=== PATIENT | female | born 1970 | race Caucasian/White ===

== ENCOUNTER 2023-05-15 13:51 | Inpatient (IN) ==
[2023-05-15] MEDS ORDERED: SODIUM CHLORIDE 0.9% 1,000 ML IV ONE (14:48)
--- NOTE | 2023-05-15 15:19 | Emergency Department Note ---
Impression & Plan Acute upper gastrointestinal bleeding ED Provider Note HISTORY OF PRESENT ILLNESS: Patient is a 53-year-old female presenting with melena and lightheadedness. Patient was at dialysis today and had her complete session when she had postdialysis laboratory work-up that apparently showed that she was anemic. Patient had been having melanotic stool for the last 2 months. She thought that it was just black from her iron supplementation. She has received multiple blood transfusions, the most recently being a week ago. She denies having an EGD recently, she was told that she has too many chronic medical problems. She states that in the last few days she has been slightly lightheaded with standing up. Denies any chest pain or shortness of breath. She has had distention of her abdomen, and reports that the last time she had a paracentesis was 2 weeks ago. Denies any abdominal pain. Denies any anticoagulation use. ROS: as above PHYSICAL EXAM: Constitutional: Patient appears in no acute distress. HENT: Head: Normocephalic and atraumatic. Eyes: EOMI, PERRL Mouth/Throat: Mucous membranes moist. Neck: Trachea midline. Neck supple. Cardiovascular: RRR, No murmurs, rubs or gallops. Intact distal pulses. Pulmonary/Chest: No respiratory distress. Breath sounds clear and equal bilaterally. No wheezes or rales. Abdominal: Abdomen soft, no tenderness, rebound or guarding. Abdomen is disten ded. Rectal: Chaperoned by nursing staff. No palpable masses or hemorrhoids. Patient has melanotic stool. Hemoccult positive. Musculoskeletal: No edema, tenderness or deformity noted. Skin: Warm and dry. No rash, erythema, pallor or cyanosis Psychiatric: Appropriate mood and affect for situation. Neurological: Alert and keenly responsive. CN II-XII grossly intact, moving all extremities equally and fully. MDM: - Vitals signs showed hypotension. - History obtained via patient. Patient presents with melena and lightheadedness. Patient was noted to be anemic today after her dialysis session and was referred to the emergency department. She last had a transfusion last week. She reports she was slightly lightheaded today. Had her full dialysis session today. States she has been having dark tarry stool for the last 2 months. Had a paracentesis 2 weeks ago. Denies any abdominal pain, fevers, chest pain or shortness of breath. - Chronic conditions affecting care: ESRD; HTN; HLD - Differential diagnoses include, but are not limited to: diverticular bleed; hemorrhoid; bleeding peptic ulcer; esophageal varices bleed - Order placed for continuous cardiac monitoring. At this time, monitor showed rate of 76 bpm with normal sinus rhythm, per my interpretation. - External medical records reviewed. - EKG reviewed by myself showed normal sinus rhythm. Rate 79 bpm. QTc 449. No acute ischemic changes. - Laboratory workup interpreted by myself showed normal WBC; anemia (Hgb 6.1); stable potassium; elevated anion gap (12); ESRD; normal troponin - Discussed case with checker stocker, Dr. Hussein. He reports that he patient is ESRD due to hypertension. She has been on dialysis for the last 2 years. He reports that patient's hemoglobin on Saturday was 6.9 and she was given 2 units of blood. They repeat her hemoglobin was up to 7.3. He reports that she missed 2 dialysis treatments over the last 2 weeks. She had previously been on the kidney transplant list, but she was inactivated a few months ago secondary to poor outpatient compliance. - 40 mg IV protonix ordered. - Patient was consented for blood in the emergency department. 2 units of packed red blood cells were ordered for transfusion. - Discussion was had with protective services social worker about patient's case and need for admission - Hospitalist consulted for admission - [facility] I provided 37 minutes of critical care time to this patient's care outside of billable procedures. ASSESSMENT AND PLAN: Diagnosis: upper GI bleed Plan: admit Past Med/Surg History Medical History (Updated 05/15/23 @ 16:41 by Nany Banerjee PA-C) Asymptomatic proteinuria Benign essential hypertension Chronic anemia Chronic kidney disease, stage V Hyperphosphatemia Hypothyroidism Metabolic acidosis Secondary hyperparathyroidism of renal origin Vitamin D deficiency Surgical History (Updated 05/15/23 @ 16:38 by Nany Banerjee PA-C) A-V fistula Hx of section Family History (Updated 05/15/23 @ 16:39 by Nany Banerjee PA-C) Father Hypertension Mother Dyslipidemia Parkinsonism Grandfather (Maternal) Parkinsonism Social History Smoking Status: Never smoker Preferred Language: Kiswahili Feels Safe at Home: Yes Allergies Allergies Allergy/AdvReac Type Severity Reaction Status Date / Time Penicillins Allergy Unknown Verified 03/12/19 06:15 Home Meds Home Medications Medication Instructions Recorded Confirmed allopurinol 100 mg tablet 100 mg PO DAILY 03/12/19 05/15/23 calcium acetate(phosphat bind) 667 667 mg PO TID #90 caps 03/12/19 05/15/23 mg capsule epoetin cate-epbx 10,000 unit/mL 10,000 units subcut MONTHLY #1 mL 03/12/19 05/15/23 injection solution (Retacrit) ferrous sulfate 325 mg (65 mg 650 mg PO DAILY 03/12/19 05/15/23 iron) tablet levothyroxine 50 mcg tablet 112 mcg PO DAILY 03/12/19 05/15/23 sertraline 100 mg tablet 100 mg PO DAILY 03/12/19 05/15/23 sodium bicarbonate 650 mg tablet 650 mg PO BID #60 tabs 03/12/19 05/15/23 carvedilol 6.25 mg tablet 0 mg PO DAILY 05/15/23 05/15/23 clotrimazole-betamethasone 1 See Rx Instructions .Route .COMPLEX 05/15/23 05/15/23 %-0.05 % topical cream montelukast 10 mg tablet 10 mg PO DAILY 05/15/23 05/15/23 pantoprazole 20 mg tablet,delayed 20 mg PO DAILY 05/15/23 05/15/23 release Results & Data (ED) Vital Signs Vital Signs - 24 hr 05/15/23 14:43 05/15/23 15:00 05/15/23 15:00 Temperature 36.6 C Temperature Source Temporal Artery Scan Pulse Rate 91 H Pulse Rate [Apical] 75 Pulse Rate [Left] Pulse Rhythm [Left] Pulse Strength [Left] Respiratory Rate 21 18 Respiratory Effort / Characteristics Respiratory Depth Respiratory Pattern Blood Pressure 85/47 L Blood Pressure [Right Arm] 89/49 L Blood Pressure Mean 59 Blood Pressure Mean [Right Arm] 62 Blood Pressure Position [Right Arm] Pulse Oximetry 979 H 98 98 Oxygen Delivery Method Room Air Room Air Sepsis Recent Fever Within 48 Hours No Sepsis New/Unexplained Change in Mental Status N/A Sepsis Action Taken by Nursing No Action Required 05/15/23 15:15 05/15/23 15:19 Temperature Temperature Source Pulse Rate 75 Pulse Rate [Apical] Pulse Rate [Left] 75 Pulse Rhythm [Left] Regular Pulse Strength [Left] Normal Respiratory Rate 18 Respiratory Effort / Characteristics Non-Labored Respiratory Depth Normal Respiratory Pattern Regular Blood Pressure Blood Pressure [Right Arm] 89/49 L Blood Pressure Mean Blood Pressure Mean [Right Arm] 62 Blood Pressure Position [Right Arm] Sitting Pulse Oximetry 98 Oxygen Delivery Method Room Air Sepsis Recent Fever Within 48 Hours Sepsis New/Unexplained Change in Mental Status Sepsis Action Taken by Nursing Laboratory Data 05/15/23 15:00 05/15/23 15:00 Lab Results 05/15/23 05/15/23 05/15/23 Range/Units 15:00 15:00 15:00 WBC 4.99 (4.8-10.8) K/ul RBC 2.05 L (4.20-5.40) M/uL Hgb 6.1 L* (12.0-16.0) g/dl Hct 20.5 L* (37.0-47.0) % MCV 100.0 (80.0-100.0) fL MCH 29.8 (25.0-34.0) pg MCHC 29.8 L (32.0-36.0) g/dL RDW Std Deviation 66.6 H (36.4-46.3) fL RDW Coeff of David 18.5 H (11.5-14.5) % Plt Count 213 (130-400) K/uL MPV 11.0 (9.4-12.4) fL Immature Gran % (Auto) 0.2 % Neut % (Auto) 78.6 % Lymph % (Auto) 11.0 % Mccreary % (Auto) 9.4 % Eos % (Auto) 0.0 % Baso % (Auto) 0.8 % Neut # (Auto) 3.92 (1.40-6.50) K/uL Lymph # (Auto) 0.55 L (1.20-3.40) K/uL Mccreary # (Auto) 0.47 (0.11-0.59) K/uL Eos # (Auto) 0.00 (0.00-0.50) K/uL Baso # (Auto) 0.04 (0.00-0.20) K/uL Immature Gran # (Auto) 0.01 (0.01-0.20) K/uL Hypochromasia Present PT 12.7 H (9.0-12.0) Seconds INR 1.2 H (0.9-1.1) APTT 29.9 (21.0-31.0) Seconds PTT Ratio 1.1 Sodium (136-145) mmol/L Potassium (3.5-5.1) mmol/L Chloride (98-107) mmol/L Carbon Dioxide (21-32) mmol/L Anion Gap (3-11) BUN (6-23) mg/dl Creatinine (0.6-1.2) mg/dl Est Cr Clr Drug Dosing ml/min Est GFR ( Amer) ml/min Est GFR (Non-Af Amer) ml/min BUN/Creatinine Ratio (10-20) Glucose (70-99(Fasting)) mg/dl Calcium (8.6-10.3) mg/dl Total Bilirubin (0.2-1.0) mg/dl AST (13-39) U/L ALT (7-52) U/L Alkaline Phosphatase (34-104) U/L Troponin I High Sens (0-14) pg/ml Total Protein (6.0-8.3) gm/dl Albumin (3.4-5.0) gm/dl Globulin (2.5-4.0) gm/dl Albumin/Globulin Ratio (0.9-2) POC Stool Occult Blood (Negative) Blood Type O Positive Blood Type Recheck Antibody Screen NEGATIVE Crossmatch See Detail 05/15/23 05/15/23 05/15/23 Range/Units 15:00 15:12 16:14 WBC (4.8-10.8) K/ul RBC (4.20-5.40) M/uL Hgb (12.0-16.0) g/dl Hct (37.0-47.0) % MCV (80.0-100.0) fL MCH (25.0-34.0) pg MCHC (32.0-36.0) g/dL RDW Std Deviation (36.4-46.3) fL RDW Coeff of David (11.5-14.5) % Plt Count (130-400) K/uL MPV (9.4-12.4) fL Immature Gran % (Auto) % Neut % (Auto) % Lymph % (Auto) % Mccreary % (Auto) % Eos % (Auto) % Baso % (Auto) % Neut # (Auto) (1.40-6.50) K/uL Lymph # (Auto) (1.20-3.40) K/uL Mccreary # (Auto) (0.11-0.59) K/uL Eos # (Auto) (0.00-0.50) K/uL Baso # (Auto) (0.00-0.20) K/uL Immature Gran # (Auto) (0.01-0.20) K/uL Hypochromasia PT (9.0-12.0) Seconds INR (0.9-1.1) APTT (21.0-31.0) Seconds PTT Ratio Sodium 136 (136-145) mmol/L Potassium 3.8 (3.5-5.1) mmol/L Chloride 94 L (98-107) mmol/L Carbon Dioxide 30 (21-32) mmol/L Anion Gap 12 H (3-11) BUN 57 H (6-23) mg/dl Creatinine 3.52 H (0.6-1.2) mg/dl Est Cr Clr Drug Dosing 15.3 ml/min Est GFR ( Amer) 16.2 ml/min Est GFR (Non-Af Amer) 13.9 ml/min BUN/Creatinine Ratio 16.2 (10-20) Glucose 107 H (70-99(Fasting)) mg/dl Calcium 8.6 (8.6-10.3) mg/dl Total Bilirubin 0.9 (0.2-1.0) mg/dl AST 20 (13-39) U/L ALT 6 L (7-52) U/L Alkaline Phosphatase 193 H (34-104) U/L Troponin I High Sens 8.1 (0-14) pg/ml Total Protein 6.2 (6.0-8.3) gm/dl Albumin 3.8 (3.4-5.0) gm/dl Globulin 2.4 L (2.5-4.0) gm/dl Albumin/Globulin Ratio 1.6 (0.9-2) POC Stool Occult Blood Positive A (Negative) Blood Type Blood Type Recheck O Positive Antibody Screen Crossmatch Administered Medications Discontinued Medications Sodium Chloride (Nss) 1,000 mls @ 999 mls/hr IV .[id number] ONE Stop: 05/15/23 15:48 Last Infusion: 05/15/23 16:22 Dose: 0 mls/hr Documented By: Infusion: 05/15/23 15:48 Dose: 999 mls/hr Documented By: Admin: 05/15/23 15:14 Dose: 999 mls/hr Documented By: EARLE Imaging Data Radiologist's Impression: Chest X-Ray 05/15/23 16:19 XR chest 1V portable HISTORY: 53 years-old Female lightheadedness COMPARISON: None TECHNIQUE: AP view of the chest FINDINGS: Cardiac silhouette is enlarged. Mild interstitial coarsening may be chronic. Mild linear bibasilar densities. No pneumothorax, pleural effusion or lobar airspace consolidation. Prominent confluent radiodense foci/calcified structures obscure the bilateral shoulders. IMPRESSION: Cardiomegaly with mild bibasilar atelectasis. ACT 112: Negative or not required by law. The above report was generated using voice recognition software. It may contain grammatical, syntax or spelling errors. Electronically signed by: Golden Mcduffie M.D. 05/15/2023 4:57 PM Discharge Plan Visit Data Chief Complaint: Referred by Doctor Stated Complaint: DOC REF,STOMACH FLUID,STOMACH BLEEDING,BLOOD TRANS ED Provider: Kinsey Ibanez Discharge Problem: Acute upper gastrointestinal bleeding Forms Stand Alone Forms: [facility] [employer] Prescriptions Prescriptions: No Action Retacrit 10,000 unit/mL solution 10,000 units subcut MONTHLY Qty: 1 calcium acetate(phosphat bind) 667 mg capsule 667 mg PO TID Qty: 90 sodium bicarbonate 650 mg tablet 650 mg PO BID Qty: 60 levothyroxine 50 mcg tablet 112 mcg PO DAILY Patient Comments: per pt it's 112 mcg now intead of 50 mcg allopurinol 100 mg tablet 100 mg PO DAILY ferrous sulfate 325 mg (65 mg iron) tablet 650 mg PO DAILY sertraline 100 mg tablet 100 mg PO DAILY carvedilol 6.25 mg tablet 0 mg PO DAILY Patient Comments: Pt isn't real sure of medication but she said she takes one that is 6.25 in the am and 6.25 in the pm, per fill history Coreg 6.25 is the one she's thinking of pantoprazole 20 mg tablet,delayed release (DR/EC) 20 mg PO DAILY clotrimazole-betamethasone 1-0.05 % cream See Rx Instructions .ROUTE .COMPLEX Rx Instructions: as directed montelukast 10 mg tablet 10 mg PO DAILY Referrals Referrals: Hardik Delaney [Primary Care Provider] -
[2023-05-15 15:57] LABS: Albumin Globulin Ratio 1.6 (0.9-2); Albumin Level 3.8 gm/dl (3.4-5.0); BUN Creatinine Ratio 16.2 (10-20); Bilirubin,Total 0.9 mg/dl (0.2-1.0); Calcium 8.6 mg/dl (8.6-10.3); Creatinine Clr Calc Pharmacy 15.3 ml/min; Est GFR (African American) 16.2 ml/min; Est GFR (Non-African American) 13.9 ml/min; Globulin 2.4 gm/dl (2.5-4.0); Potassium 3.8 mmol/L (3.5-5.1); Total Protein 6.2 gm/dl (6.0-8.3)
[2023-05-15] MEDS ORDERED: SODIUM CHLORIDE 0.9% 250 ML IV PRN (15:58)
[2023-05-15 16:02] LABS: Hematocrit (blood only) 20.5 % (37.0-47.0); Hemoglobin 6.1 g/dl (12.0-16.0); Mean Corpuscular Hemoglobin 29.8 pg (25.0-34.0); Mean Corpuscular Hgb Conc 29.8 g/dL (32.0-36.0); Platelet Count 213 K/uL (130-400); RDW Coefficient of Variation 18.5 % (11.5-14.5); RDW Standard Deviation 66.6 fL (36.4-46.3); Red Blood Count 2.05 M/uL (4.20-5.40); White Blood Count 4.99 K/ul (4.8-10.8)
[2023-05-15 16:04] LABS: Troponin I High Sensitivity 8.1 pg/ml (0-14)
[2023-05-15 16:05] LABS: Basophils # (auto) 0.04 K/uL (0.00-0.20); Basophils % (auto) 0.8 %; Hypochromasia Present; Immature Granulocytes # (auto) 0.01 K/uL (0.01-0.20); Immature Granulocytes % (auto) 0.2 %; Lymphocytes # (auto) 0.55 K/uL (1.20-3.40); Monocytes # (auto) 0.47 K/uL (0.11-0.59); Monocytes % (auto) 9.4 %; Neutrophils # (auto) 3.92 K/uL (1.40-6.50); Neutrophils % (auto) 78.6 %
[2023-05-15 16:16] LABS: INR 1.2 (0.9-1.1); Partial Thromboplastin Ratio 1.1; Partial Thromboplastin Time 29.9 Seconds (21.0-31.0); Prothrombin Time 12.7 Seconds (9.0-12.0)
[2023-05-15] MEDS ORDERED: PANTOprazole 40 MG in SYRINGE 0 ML IV ONE (16:22)
--- NOTE | 2023-05-15 16:30 | History & Physical Report ---
Date of Service May 15, 2023 Assessment & Plan (1) GI bleed: (2) Chronic anemia: Plan: This is a 53-year-old female with PMHx of's end-stage renal disease on dialysis x 4 years, (due to solitary kidney, frequent UTIs, pre-eclampsia, gout, HTN and reflux nephropathy), with regular HD schedule MWF with brachiocephalic AVF which required AV fistulogram stent and peripheral angioplasty 04/02/23, severe , severe TR, mild MR, severe pulmonary hypertension, anemia of chronic disease and iron deficiency, requiring multiple transfusions in the past, HTN, ascites (first began in November 2022 requiring paracentesis), secondary hyperparathyroidism, Vit D deficiency, hypothyroidism and depression who presents to the hospital with 1 day of lightheadedness and dizziness. - Admit to tele - BP hypotensive upon arival to ER, 89/49, initially given 250 ml, type and cross completed, blood bank has been called, ordered 2 U for transfusion with hgb of 6.1 - pt outpt BP runs 95/50s per who supports the history - Pt with melanotic stools on and off with diarrhea over the past 2 months, patient has been receiving IV iron with dialysis transfusions (received today) - Suspect that acute dizziness/hypotension is due to GI blood loss with acute hgb drop, She was transfused 2 units last week due to anemia with similar symptoms - GI consulted for possible needs for EGD/colonoscopy: NOTE: this was not completed during hospital stay at [facility] [place] [facility] in April-it appears that she was transfused and trended, questionable circumstances did not allow for procedure to be performed at that time (3) Chronic kidney disease, stage V: Plan: -Nephrology consulted, follows with Dr. Hussein as an outpatient -Normal HD schedule MWF, received 2.5 hours session 05/15/23, normally gets 3 hours, patient unsure of the amount of liters that were taken off today -Creatinine 3.52, BUN 57, potassium 3.8 on admission -Avoid nephrotoxic agents, renally reduce medications (4) Benign essential hypertension: (5) Severe aortic stenosis: (6) Pulmonary hypertension: Plan: -Follows with Dr. Varma with cardiology as outpatient -Recently had multiple medications discontinued or reduced including (DC meds amlodipine, Lasix) -Hold Coreg which is 6.25 mg BID for now with BP -Check 2D echo -Consult cardiology -abdominal US for portal vasculature and dinora for possible paracentesis - day team to schedule tomorrow (7) Hypothyroidism: Plan: - Cont levothyroxine 112 mcg daily (8) Vitamin D deficiency: Plan: - Chronic, stable DVT ppx: teds, scds CODE: FULL Access: 1 PIV, LUE AVF Dispo: From home, likely to remain in hospital x 1-2 days pending scopes/course. Palliative care consultation would be warranted for goal of care if she is not eligible for scopes and would continue to need transfusion therapy. History of Present Illness Chief Complaint: Lightheadedness and dizziness Primary Care Provider: Hardik Delaney This is a 53-year-old female with PMHx of's end-stage renal disease on dialysis x 4 years, (due to solitary kidney, frequent UTIs, pre-eclampsia, gout, HTN and reflux nephropathy), with regular HD schedule MWF with brachiocephalic AVF which required AV fistulogram stent and peripheral angioplasty 04/02/23, severe , severe TR, mild MR, severe pulmonary hypertension, anemia of chronic disease and iron deficiency, requiring multiple transfusions in the past, HTN, ascites (first began in November 2022 requiring paracentesis), secondary hyperparathyroidism, Vit D deficiency, hypothyroidism and depression who presents to the hospital with 1 day of lightheadedness and dizziness. She was recently hospitalized in [facility] in Apr 2023 Pt was at dialysis this morning and was noting symptoms at that time. She admits to having abdominal distension which is present, but she doesn't think this is worse than normal. Her bowels have looked dark, but thought alejandro this was due to her iron tablet. She has had uncontrolled bouts of diarrhea today, it has been intermittent. Pt had paracentesis in October done, which does not show liver morphology, she was attempted to be scheduled by Dr. Hussein for paracentesis on 05/23 at [facility] as per outpatient EPIC chart review. Pt follow with Dr. Varma with [facility] customer operations associate and was noted that BP had been 89/44 at the end of April, and at that time pt coreg was reduced to 6.25 mg BID. She was supposed to have a cardiac right-sided cardiac catheterization to evaluate aortic stenosis and pulmonary hypertension at [facility] but was found to have a hemoglobin of 6.6 at that time. Procedure was aborted and decision was made to admit to medicine and transfuse 1 unit PRBCs. During that hospital stay nephrology and GI were consulted due to GI bleed. At that time she was also complaining of melena x 2 months and thought it was from her iron pills, orthostasis , nausea and diarrhea. This is nearly identical to the symptoms she is complaining of today. Questionable circumstances regarding EGD and colonoscopy during that hospital stay and ultimately were not performed. Allergies Allergy/AdvReac Type Severity Reaction Status Date / Time Penicillins Allergy Unknown Verified 03/12/19 06:15 Home Medications Medication Instructions Recorded Confirmed Type allopurinol 100 mg tablet 100 mg PO DAILY 03/12/19 05/15/23 History calcium acetate(phosphat bind) 667 667 mg PO TID #90 caps 03/12/19 05/15/23 History mg capsule epoetin cate-epbx 10,000 unit/mL 10,000 units subcut MONTHLY #1 mL 03/12/19 05/15/23 History injection solution (Retacrit) levothyroxine 50 mcg tablet 112 mcg PO DAILY 03/12/19 05/15/23 History sertraline 100 mg tablet 100 mg PO DAILY 03/12/19 05/15/23 History sodium bicarbonate 650 mg tablet 650 mg PO BID #60 tabs 03/12/19 05/15/23 History carvedilol 6.25 mg tablet 6.25 mg PO BID 05/15/23 05/15/23 History clotrimazole-betamethasone 1 See Rx Instructions .Route .COMPLEX 05/15/23 05/15/23 History %-0.05 % topical cream montelukast 10 mg tablet 10 mg PO DAILY 05/15/23 05/15/23 History pantoprazole 20 mg tablet,delayed 20 mg PO DAILY 05/15/23 05/15/23 History release Past Med/Surg History Medical History (Updated 05/15/23 @ 17:59 by Nany Banerjee PA-C) Asymptomatic proteinuria Benign essential hypertension Chronic anemia Chronic kidney disease, stage V Hyperphosphatemia Hypothyroidism Metabolic acidosis Secondary hyperparathyroidism of renal origin Vitamin D deficiency Surgical History (Updated 05/15/23 @ 16:38 by Nany Banerjee PA-C) A-V fistula Hx of section Family History (Updated 05/15/23 @ 16:39 by Nany Banerjee PA-C) Father Hypertension Mother Dyslipidemia Parkinsonism Grandfather (Maternal) Parkinsonism Social History Smoking Status: Never smoker Preferred Language: Danish Feels Safe at Home: Yes Review of Systems Review of Systems: Constitutional: No fever, sweats or chills Eyes: No diplopia, no worsening or blurred vision ENT: normal hearing, no trouble swallowing Respiratory: No cough, sputum, dyspnea at rest or on exertion Cardiovascular: No chest pain, tightness or palpitations Abdomen: As per HPI Musculoskeletal: No joint pain, calf pain, swelling Neurologic: + Generalized weakness, no numbness/tingling, or balance problems typically, today with increased dizziness with standing/walking Psychiatric: No anxiety or depression Skin: No rash or itch Physical Exam Physical Exam: General: awake, alert, no apparent distress, + chronic darkening skin changes throughout, dry skin Head: Normocephalic, atraumatic ENT: PERRL, EOMI, no pharyngeal exudate, mucous membranes dry, no carotid bruits Chest: Clear to auscultation, on room air, no adventitious breath sounds Cardiac: Regular rate and rhythm, +loud systolic ejection murmur Grade III/, no JVD, normal peripheral pulses, good capillary refill Abdominal: NABS x 4 quadrants, soft, +distended, + fluid wave, minimally tender to palpation, no rebound or guarding Extremities: LUE AVF with thrill and bruit, Normal inspection, no peripheral edema or erythema, calfs nontender to palpation Psych: Normal mood and affect Neuro: AAO x 3, strength intact bilaterally and rated 5/5, no motor deficits, speech is clear, no peripheral sensory deficits Results & Data Results & Data Vital Signs (Past 12 Hours) Vital Signs Temp Pulse Pulse Pulse Resp BP BP 05/15/23 15:19 75 05/15/23 15:15 75 18 89/49 L 05/15/23 15:00 05/15/23 15:00 75 18 89/49 L 05/15/23 14:43 36.6 C 91 H 21 85/47 L Pulse Ox O2 Del Method 05/15/23 15:19 05/15/23 15:15 98 Room Air 05/15/23 15:00 98 05/15/23 15:00 98 Room Air 05/15/23 14:43 979 H Room Air Laboratory Results 05/15/23 05/15/23 05/15/23 15:12 15:00 15:00 WBC RBC Hgb Hct MCV MCH MCHC RDW Std Deviation RDW Coeff of David Plt Count MPV Immature Gran % (Auto) Neut % (Auto) Lymph % (Auto) [place] % (Auto) Eos % (Auto) Baso % (Auto) Neut # (Auto) Lymph # (Auto) [place] # (Auto) Eos # (Auto) Baso # (Auto) Immature Gran # (Auto) Hypochromasia PT 12.7 H INR 1.2 H APTT 29.9 PTT Ratio 1.1 Sodium 136 Potassium 3.8 Chloride 94 L Carbon Dioxide 30 Anion Gap 12 H BUN 57 H Creatinine 3.52 H Est Cr Clr Drug Dosing 15.3 Est GFR ( Amer) 16.2 Est GFR (Non-Af Amer) 13.9 BUN/Creatinine Ratio 16.2 Glucose 107 H Calcium 8.6 Total Bilirubin 0.9 AST 20 ALT 6 L Alkaline Phosphatase 193 H Troponin I High Sens 8.1 Total Protein 6.2 Albumin 3.8 Globulin 2.4 L Albumin/Globulin Ratio 1.6 POC Stool Occult Blood Positive A Blood Type Antibody Screen Crossmatch 05/15/23 05/15/23 15:00 15:00 WBC 4.99 RBC 2.05 L Hgb 6.1 L* Hct 20.5 L* MCV 100.0 MCH 29.8 MCHC 29.8 L RDW Std Deviation 66.6 H RDW Coeff of David 18.5 H Plt Count 213 MPV 11.0 Immature Gran % (Auto) 0.2 Neut % (Auto) 78.6 Lymph % (Auto) 11.0 Columbia % (Auto) 9.4 Eos % (Auto) 0.0 Baso % (Auto) 0.8 Neut # (Auto) 3.92 Lymph # (Auto) 0.55 L Columbia # (Auto) 0.47 Eos # (Auto) 0.00 Baso # (Auto) 0.04 Immature Gran # (Auto) 0.01 Hypochromasia Present PT INR APTT PTT Ratio Sodium Potassium Chloride Carbon Dioxide Anion Gap BUN Creatinine Est Cr Clr Drug Dosing Est GFR ( Amer) Est GFR (Non-Af Amer) BUN/Creatinine Ratio Glucose Calcium Total Bilirubin AST ALT Alkaline Phosphatase Troponin I High Sens Total Protein Albumin Globulin Albumin/Globulin Ratio POC Stool Occult Blood Blood Type O Positive Antibody Screen NEGATIVE Crossmatch See Detail Diagnostic Findings Chest X-Ray 05/15/23 16:19 XR chest 1V portable HISTORY: 53 years-old Female lightheadedness COMPARISON: None TECHNIQUE: AP view of the chest FINDINGS: Cardiac silhouette is enlarged. Mild interstitial coarsening may be chronic. Mild linear bibasilar densities. No pneumothorax, pleural effusion or lobar airspace consolidation. Prominent confluent radiodense foci/calcified structures obscure the bilateral shoulders. IMPRESSION: Cardiomegaly with mild bibasilar atelectasis. ACT 112: Negative or not required by law. The above report was generated using voice recognition software. It may contain grammatical, syntax or spelling errors. Electronically signed by: Golden Mcduffie M.D. 05/15/2023 4:57 PM ECG Additional Comments: 15-MAY-2023 14:52:59 [facility]-EDSTAT ROUTINE RETRIEVAL Normal sinus rhythm Nonspecific ST and T wave abnormality Abnormal ECG No previous ECGs available Confirmed by Trey Thakkar ([id number]) on 05/15/2023 4:31:47 PM 25mm/s10mm/[id number] 243CID: 24Confirmed By: Trey Olivo. rate 79 BPM AL interval 148 ms QRS duration 84 ms QT/QTc 392/449 ms Code Status & VTE Plan Code Status Full Code - discussed with the patient and her at bedside Supervising Physician Co-Signing Physician Notes I have seen and discussed the case with the collaborating ITALO. I agree with the above H&P. I have reviewed and confirmed the patients medical history, the findings on physical examination, and the patients diagnosis and treatment plan with Chriss PUCKETT and agree with the information documented. In short, Ms Whaley is a 53 year old woman with a complicated past medical history including severe aortic stenosis, recurrent ascites of uncertain etiology undergoing eval, and ESRD who is admitted due to acute on chronic anemia. Patient's anemia undergoing workup at multiple facilities, including recent admission at [facility] requiring transfusions. Unclear circumstances with scopes given medical complexity. Patient does not appear to be aware of tenuous medical status. VS with hypotension, consistent with routine baseline. Labs with anemia to 6.1. PE with notable fluid wave, no peripheral edema, +POLA. Plan: -Acute anemia, c/f UGIB: transfuse > 7.0, trend cbc, 2 Units on standby, monitor volume status given ESRD/severe , NPO, IV PPI BID, GI consult for ?scope -Ascites: Ordered complete duplex abd US to eval vasculature, discuss timing for para once hgb stable -Severe : ECHO ordered, Cards consult for clearance and optimization -ESRD: Nephrology on consult There rest of plan as above.
--- NOTE | 2023-05-15 16:32 | Electrocardiogram Report ---
Test Reason : Blood Pressure : / mmHG Vent. Rate : 079 BPM Atrial Rate : 079 BPM P-R Int : 148 ms QRS Dur : 084 ms QT Int : 392 ms P-R-T Axes : 039 034 188 degrees QTc Int : 449 ms Normal sinus rhythm Nonspecific ST and T wave abnormality Abnormal ECG No previous ECGs available Confirmed by Trey Thakkar ([id number]) on 05/15/2023 4:31:47 PM Referred By: Confirmed By:Trey Thakkar
[2023-05-15] MEDS ORDERED: SODIUM CHLORIDE 0.9% 1,000 ML IV STA (16:38)
--- NOTE | 2023-05-15 16:58 | XRay Report ---
XR chest 1V portable HISTORY: 53 years-old Female lightheadedness COMPARISON: None TECHNIQUE: AP view of the chest FINDINGS: Cardiac silhouette is enlarged. Mild interstitial coarsening may be chronic. Mild linear bibasilar de nsities. No pneumothorax, pleural effusion or lobar airspace consolidation. Prominent confluent radio dense foci/calcified structures obscure the bilateral shoulders. IMPRESSION: Cardiomegaly with mild bibasilar atelectasis. ACT 112: Negative or not required by law. The above report was generated using voice recognition software. It may contain grammatical, syntax o r spelling errors. Electronically signed by: Golden Mcduffie M.D. 05/15/2023 4:57 PM
[2023-05-15] MEDS ORDERED: ONDANSETRON INJ 2 MG/ML 2 ML VIAL IV PRN (19:57)
[2023-05-15] MEDS ORDERED: ACETAMINOPHEN 325 MG TAB PO PRN (19:57)
[2023-05-15] MEDS: SODIUM BICARBONATE 650 MG TAB PO SCH (22:24)
[2023-05-15] MEDS: CALCIUM ACETATE 667 MG CAP/TAB PO SCH (22:25)
[2023-05-16] MEDS: PANTOprazole 40 MG in SYRINGE 0 ML IV SCH ×3 (01:52→21:51)
[2023-05-16 06:43] LABS: Hematocrit (blood only) 26.9 % (37.0-47.0); Hemoglobin 8.8 g/dl (12.0-16.0); Mean Corpuscular Hemoglobin 30.1 pg (25.0-34.0); Mean Corpuscular Hgb Conc 32.7 g/dL (32.0-36.0); Mean Corpuscular Volume 92.1 fL (80.0-100.0); Platelet Count 206 K/uL (130-400); RDW Coefficient of Variation 19.8 % (11.5-14.5); RDW Standard Deviation 64.4 fL (36.4-46.3); Red Blood Count 2.92 M/uL (4.20-5.40); White Blood Count 6.18 K/ul (4.8-10.8)
[2023-05-16 07:03] LABS: Albumin Globulin Ratio 1.6 (0.9-2); Albumin Level 3.5 gm/dl (3.4-5.0); BUN Creatinine Ratio 15.6 (10-20); Bilirubin,Total 1.3 mg/dl (0.2-1.0); Calcium 8.8 mg/dl (8.6-10.3); Creatinine Clr Calc Pharmacy 13.3 ml/min; Est GFR (African American) 13.2 ml/min; Est GFR (Non-African American) 11.4 ml/min; Globulin 2.2 gm/dl (2.5-4.0); Magnesium 2.1 mg/dl (1.7-2.4); Phosphorus 5.2 mg/dl (2.5-4.9); Potassium 4.2 mmol/L (3.5-5.1); Total Protein 5.7 gm/dl (6.0-8.3)
[2023-05-16 07:07] LABS: INR 1.2 (0.9-1.1); Prothrombin Time 13.2 Seconds (9.0-12.0)
--- NOTE | 2023-05-16 08:43 | Gastrointestinal Consultation ---
Date of Consultation May 16, 2023 Assessment & Plan (1) Chronic anemia: (2) Melena: Plan EGD today by Dr. Cordero. Further recommendations to follow EGD. For now, continue PPI drip, NPO. History of Present Illness Reason for Consultation: GI Bleed Requesting Physician: Jennifer Peters Attending Physician: Felix Bright MD History of Present Illness Ms. Anayeli Whaley is a 53 yr old female pt of Dr. Rhett dozier a hx of CKD5 on dialysis, chronic anemia (frequently requiring transfusions), severe , pulm HTN, , hypothyroidism who was sent to the ED when post dialysis labs showed Hb of 6.1 yesterday. When questioned, she reports black BMs saying that over the past few months, she will sometimes pass a formed black BM early in the morning and sometimes pass a loose black BM later in the day. She is on IV, but not po iron. supplements. She has received 2 units of RBCs and Hb is now 8.8. She is on a PPI drip. She is awake, alert, oriented, denies abdominal pain. She hasn't passed a BM since arrival. I reviewed her OP EPIC records. No prior EGD/colonoscopy and no recent abdominal imaging. Allergies Allergy/AdvReac Type Severity Reaction Status Date / Time Penicillins Allergy Unknown Verified 03/12/19 06:15 Home Medications Medication Instructions Recorded Confirmed Type allopurinol 100 mg tablet 100 mg PO DAILY 03/12/19 05/15/23 History calcium acetate(phosphat bind) 667 667 mg PO TID #90 caps 03/12/19 05/15/23 History mg capsule epoetin cate-epbx 10,000 unit/mL 10,000 units subcut MONTHLY #1 mL 03/12/19 05/15/23 History injection solution (Retacrit) levothyroxine 50 mcg tablet 112 mcg PO DAILY 03/12/19 05/15/23 History sertraline 100 mg tablet 100 mg PO DAILY 03/12/19 05/15/23 History sodium bicarbonate 650 mg tablet 650 mg PO BID #60 tabs 03/12/19 05/15/23 History carvedilol 6.25 mg tablet 6.25 mg PO BID 05/15/23 05/15/23 History clotrimazole-betamethasone 1 See Rx Instructions .Route .COMPLEX 05/15/23 05/15/23 History %-0.05 % topical cream montelukast 10 mg tablet 10 mg PO DAILY 05/15/23 05/15/23 History pantoprazole 20 mg tablet,delayed 20 mg PO DAILY 05/15/23 05/15/23 History release Patient History Medical History (Updated 05/16/23 @ 10:11 by HARSHA Cerda) Asymptomatic proteinuria Benign essential hypertension Chronic anemia Chronic kidney disease, stage V Hyperphosphatemia Hypothyroidism Metabolic acidosis Secondary hyperparathyroidism of renal origin Vitamin D deficiency Surgical History (Updated 05/15/23 @ 16:38 by Nany Banerjee PA-C) A-V fistula Hx of section Family History (Updated 05/15/23 @ 16:39 by Nany Banerjee PA-C) Father Hypertension Mother Dyslipidemia Parkinsonism Grandfather (Maternal) Parkinsonism Social History Smoking Status: Never smoker Hx Alcohol Use: No Hx Substance Use: No Preferred Language: Vietnamese Communication Ability: Effective Operations Technician Required: No Beliefs That Will Affect Care: None Current Living Situation: Spouse and Family Other Information That Helps Us Care for You: No Feels Safe at Home: Yes Safety Concerns: Feels Safe At This Time Assistive Devices: None Review of Systems Review of Systems: ROS: Gen: Denies weakness, fevers, weight loss Eyes: No eye redness, or pain, no recent vision changes Resp: No SOB, no cough Cardio: No palpitations/irregular beats, no chest pain GI: As per HPI, otherwise (-) : No urination, no lower abd pain Skin: No jaundice, itching or new rashes Physical Exam Constitutional: Awake, alert, oriented, generally weak (difficulty even rolling over in bed w/o holding on to a rail etc) but has full use of all extremitites. ENMT: external ear and nose normal, oropharynx normal Neck: trachea midline, no thyromegaly Respiratory: normal respiratory effort, lungs clear to auscultation Cardiovascular: 3/6 systolic murmur; regular rate and rhythm Gastrointestinal (Abdomen): mildly distended, soft, non tender, normal BS Skin: darker - azotemic/bronze tone otherwise normal w/o rashes/lesions. Neurologic: PERRL, EOMI, accommodation nl, no face palsy, no dysarthria Psychiatric: A+Ox3, euthymic affect Lymphatic: no cervical or axillary lymphadenopathy Results & Data Vital Signs (Past 12 Hours) Vital Signs Temp Pulse Pulse Resp BP BP Pulse Ox 05/16/23 08:09 36.6 C 81 19 106/68 98 05/16/23 03:56 37.2 C 82 18 97/61 L 97 05/16/23 02:19 36.7 C 78 22 108/66 96 05/16/23 00:58 05/16/23 00:30 81 22 99/61 L 05/16/23 00:15 83 26 H 100/59 L 05/16/23 00:00 83 24 93/60 L 05/15/23 23:45 83 22 110/65 05/15/23 23:30 82 17 106/56 L 05/15/23 23:15 82 20 101/59 L 05/15/23 23:00 82 22 104/59 L 05/15/23 22:45 81 19 101/59 L 05/15/23 22:30 81 16 112/65 05/15/23 22:15 80 20 99/57 L 100 05/15/23 22:00 79 16 99/56 L 100 05/15/23 23:22 82 05/15/23 21:45 82 20 94/59 L 99 05/15/23 21:30 81 20 100/55 L 100 05/15/23 21:15 81 18 102/58 L 99 05/15/23 21:00 81 23 100/57 L 98 05/15/23 20:50 82 23 99/57 L 95 05/15/23 20:45 79 14 94/64 L 96 05/15/23 21:05 36.8 C 80 18 100/57 L 97 05/15/23 20:50 37.0 C 80 18 99/57 L 95 05/15/23 20:50 37.0 C 82 18 99/57 L 96 O2 Del Method 05/16/23 08:09 Room Air 05/16/23 03:56 Room Air 05/16/23 02:19 Room Air 05/16/23 00:58 Room Air 05/16/23 00:30 05/16/23 00:15 05/16/23 00:00 05/15/23 23:45 05/15/23 23:30 05/15/23 23:15 05/15/23 23:00 05/15/23 22:45 05/15/23 22:30 05/15/23 22:15 05/15/23 22:00 05/15/23 23:22 05/15/23 21:45 05/15/23 21:30 05/15/23 21:15 05/15/23 21:00 05/15/23 20:50 05/15/23 20:45 05/15/23 21:05 05/15/23 20:50 05/15/23 20:50 Laboratory Results WBC 6, Hb 8.8, Hct 29, Plts 206, Na 139, K 4.2, Cl 96, CO2 28, BUN 65, Cr 4.5, glucose 82. Diagnostic Findings CXR: cardiomegaly.
[2023-05-16] MEDS ORDERED: PANTOprazole 40 MG TAB PO SCH (09:00)
--- NOTE | 2023-05-16 09:03 | Ultrasound Report ---
US duplex portal hepatic veins HISTORY: 53 years-old Female Eval portal vasculature acute right upper quadrant abdominal pain COMPARISON: None TECHNIQUE: Multiple real-time sonographic images of the hepatic vasculature was obtained assessing gr ayscale appearance, color and spectral flow FINDINGS: Upper abdominal ascites is noted. Patent hepatic and portal veins with hepatopedal flow. Hepatic cinthya ry is patent with peak systolic velocities measuring up to 83.4 cm/s. IMPRESSION: 1. Patent hepatic vasculature. 2. Upper abdominal ascites. ACT 112: Negative or not required by law. The above report was generated using voice recognition software. It may contain grammatical, syntax o r spelling errors. Electronically signed by: Golden Mcduffie M.D. 05/16/2023 9:02 AM
--- NOTE | 2023-05-16 09:05 | Cardiology Consultation ---
Date of Consultation May 16, 2023 Assessment & Plan (1) Profound anemia: (2) ESRD (end stage renal disease): (3) Severe aortic stenosis: (4) Pulmonary hypertension: (5) Ascites: Plan Very complex patient, 53-year-old with end-stage renal disease chronic anemia with recent symptomatic profound anemia on 2 occasions. Is being evaluated for severe to critical aortic stenosis. Other issues include recurrent ascites, pulmonary hypertension. Currently stable from a cardiac standpoint though with marginal reserve. Echocardiogram with severe arctic stenosis and preserved LV systolic function, severe tricuspid insufficiency with evidence of at least moderate pulmonary hype rtension Patient's chronic blood loss issues are being addressed via GI though may ultimately be managed with intermittent transfusions No plans for acute cardiac intervention. Has follow-up appoint with outpatient cardiology on 05/21/2023 We will follow clinical course in hospital Patient elevated risk for any cardiac intervention or procedure History of Present Illness Reason for Consultation: Severe Requesting Physician: Tyler alanisist Attending Physician: Felix Bright MD History of Present Illness Medically complex 53-year-old female who presented to [facility] emergency department after dialysis yesterday with a hemoglobin of 6.1. She received 2 units of PRBCs and placed on a PPI drip. Hemoglobin 8.8 this morning. Patient was significantly hypotensive and was given IV fluids. Carvedilol was held. GI consulted-- plans for EGD. Follows with Dr. Varma in the valve clinic for severe aortic stenosis and was recently seen in April with plans for work-up of diagnostic coronary angiography at [facility]-this has not yet been completed. At time of initial exam this morning. Patient without chest pain or shortness of breath. Was scheduled for endoscopy but notable appointment stopped secondary to emesis. Hemoglobin improved after transfusion. Mild abdominal distention present no chest pain or discomfort Primary outpatient airframe technical officer: Dr. Waller, [facility] Past medical history: Severe aortic stenosis--follows with Dr. Varma, last evaluated 04/15/2023 with plans for coronary angiography and right heart cath in the future Severe TR Mild MR Severe pulmonary hypertension End-stage renal disease on hemodialysis, Saturday--no longer transplant candidate secondary to severe pulmonary hypertension Ascites status post paracentesis Secondary hyperparathyroidism secondary to ESRD, hypercalcemia, vitamin D deficiency Hypertension Depression Hypothyroidism Chronic anemia, requiring multiple transfusions Allergies Allergy/AdvReac Type Severity Reaction Status Date / Time Penicillins Allergy Unknown Verified 03/12/19 06:15 Home Medications Medication Instructions Recorded Confirmed Type allopurinol 100 mg tablet 100 mg PO DAILY 03/12/19 05/15/23 History calcium acetate(phosphat bind) 667 667 mg PO TID #90 caps 03/12/19 05/15/23 History mg capsule epoetin cate-epbx 10,000 unit/mL 10,000 units subcut MONTHLY #1 mL 03/12/19 05/15/23 History injection solution (Retacrit) levothyroxine 50 mcg tablet 112 mcg PO DAILY 03/12/19 05/15/23 History sertraline 100 mg tablet 100 mg PO DAILY 03/12/19 05/15/23 History sodium bicarbonate 650 mg tablet 650 mg PO BID #60 tabs 03/12/19 05/15/23 History carvedilol 6.25 mg tablet 6.25 mg PO BID 05/15/23 05/15/23 History clotrimazole-betamethasone 1 See Rx Instructions .Route .COMPLEX 05/15/2305/05 History %-0.05 % topical cream montelukast 10 mg tablet 10 mg PO DAILY 05/15/23 05/15/23 History pantoprazole 20 mg tablet,delayed 20 mg PO DAILY 05/15/23 05/15/23 History release Patient History Medical History Asymptomatic proteinuria Benign essential hypertension Chronic anemia Chronic kidney disease, stage V Encounter for pre-operative examination Hyperphosphatemia Hypothyroidism Metabolic acidosis Secondary hyperparathyroidism of renal origin Vitamin D deficiency Surgical History A-V fistula Hx of section Family History Father Hypertension Mother Dyslipidemia Parkinsonism Grandfather (Maternal) Parkinsonism Social History Smoking Status: Never smoker Hx Alcohol Use: No Hx Substance Use: No Preferred Language: Malay Communication Ability: Effective Scout Required: No Beliefs That Will Affect Care: None Current Living Situation: Spouse and Family Other Information That Helps Us Care for You: No Feels Safe at Home: Yes Safety Concerns: Feels Safe At This Time Assistive Devices: None Review of Systems Review of Systems: All systems reviewed & are unremarkable except as noted in HPI & below Physical Exam Constitutional: + ill appearing; no acute distress Neck: trachea midline, no thyromegaly Respiratory: Auscultation: + diminished lung sounds Cardiovascular: Rate/Rhythm: regular rate Heart Sounds: + murmur (Grade 3/6 systolic murmur) Vessels: no JVD Extremities: no edema Gastrointestinal (Abdomen): Percussion/Palpation: abdomen soft Results & Data Vital Signs (Past 12 Hours) Vital Signs Temp Pulse Pulse Resp BP BP Pulse Ox 05/16/23 08:09 36.6 C 81 19 106/68 98 05/16/23 03:56 37.2 C 82 18 97/61 L 97 05/16/23 02:19 36.7 C 78 22 108/66 96 05/16/23 00:58 05/16/23 00:30 81 22 99/61 L 05/16/23 00:15 83 26 H 100/59 L 05/16/23 00:00 83 24 93/60 L 05/15/23 23:45 83 22 110/65 05/15/23 23:30 82 17 106/56 L 05/15/23 23:15 82 20 101/59 L 05/15/23 23:00 82 22 104/59 L 05/15/23 22:45 81 19 101/59 L 05/15/23 22:30 81 16 112/65 05/15/23 22:15 80 20 99/57 L 100 05/15/23 22:00 79 16 99/56 L 100 05/15/23 23:22 82 05/15/23 21:45 82 20 94/59 L 99 05/15/23 21:30 81 20 100/55 L 100 05/15/23 21:15 81 18 102/58 L 99 05/15/23 21:00 81 23 100/57 L 98 05/15/23 21:05 36.8 C 80 18 100/57 L 97 O2 Del Method 05/16/23 08:09 Room Air 05/16/23 03:56 Room Air 05/16/23 02:19 Room Air 05/16/23 00:58 Room Air 05/16/23 00:30 05/16/23 00:15 05/16/23 00:00 05/15/23 23:45 05/15/23 23:30 05/15/23 23:15 05/15/23 23:00 05/15/23 22:45 05/15/23 22:30 05/15/23 22:15 05/15/23 22:00 05/15/23 23:22 05/15/23 21:45 05/15/23 21:30 05/15/23 21:15 05/15/23 21:00 05/15/23 21:05 Laboratory Results Laboratory Results - last 24 hr 05/15/23 05/15/23 05/15/23 15:00 15:00 15:00 WBC 4.99 RBC 2.05 L Hgb 6.1 L* Hct 20.5 L* MCV 100.0 MCH 29.8 MCHC 29.8 L RDW Std Deviation 66.6 H RDW Coeff of David 18.5 H Plt Count 213 MPV 11.0 Immature Gran % (Auto) 0.2 Neut % (Auto) 78.6 Lymph % (Auto) 11.0 [place] % (Auto) 9.4 Eos % (Auto) 0.0 Baso % (Auto) 0.8 Neut # (Auto) 3.92 Lymph # (Auto) 0.55 L [place] # (Auto) 0.47 Eos # (Auto) 0.00 Baso # (Auto) 0.04 Immature Gran # (Auto) 0.01 Hypochromasia Present PT 12.7 H INR 1.2 H APTT 29.9 PTT Ratio 1.1 Sodium Potassium Chloride Carbon Dioxide Anion Gap BUN Creatinine Est Cr Clr Drug Dosing Est GFR ( Amer) Est GFR (Non-Af Amer) BUN/Creatinine Ratio Glucose Calcium Phosphorus Magnesium Total Bilirubin AST ALT Alkaline Phosphatase Troponin I High Sens Total Protein Albumin Globulin Albumin/Globulin Ratio POC Stool Occult Blood SARS-CoV-2 (PCR) Influenza Type A (PCR) Influenza Type B (PCR) RSV (RT-PCR) Blood Type O Positive Blood Type Recheck Antibody Screen NEGATIVE Crossmatch See Detail 05/15/23 05/15/23 05/15/23 15:00 15:12 16:14 WBC RBC Hgb Hct MCV MCH MCHC RDW Std Deviation RDW Coeff of David Plt Count MPV Immature Gran % (Auto) Neut % (Auto) Lymph % (Auto) [place] % (Auto) Eos % (Auto) Baso % (Auto) Neut # (Auto) Lymph # (Auto) [place] # (Auto) Eos # (Auto) Baso # (Auto) Immature Gran # (Auto) Hypochromasia PT INR APTT PTT Ratio Sodium 136 Potassium 3.8 Chloride 94 L Carbon Dioxide 30 Anion Gap 12 H BUN 57 H Creatinine 3.52 H Est Cr Clr Drug Dosing 15.3 Est GFR ( Amer) 16.2 Est GFR (Non-Af Amer) 13.9 BUN/Creatinine Ratio 16.2 Glucose 107 H Calcium 8.6 Phosphorus Magnesium Total Bilirubin 0.9 AST 20 ALT 6 L Alkaline Phosphatase 193 H Troponin I High Sens 8.1 Total Protein 6.2 Albumin 3.8 Globulin 2.4 L Albumin/Globulin Ratio 1.6 POC Stool Occult Blood Positive A SARS-CoV-2 (PCR) Influenza Type A (PCR) Influenza Type B (PCR) RSV (RT-PCR) Blood Type Blood Type Recheck O Positive Antibody Screen Crossmatch 05/16/23 05/16/23 05/16/23 06:11 06:11 06:11 WBC 6.18 RBC 2.92 L Hgb 8.8 L Hct 26.9 L MCV 92.1 D MCH 30.1 MCHC 32.7 RDW Std Deviation 64.4 H RDW Coeff of David 19.8 H Plt Count 206 MPV 11.0 Immature Gran % (Auto) Neut % (Auto) Lymph % (Auto) [place] % (Auto) Eos % (Auto) Baso % (Auto) Neut # (Auto) Lymph # (Auto) [place] # (Auto) Eos # (Auto) Baso # (Auto) Immature Gran # (Auto) Hypochromasia PT 13.2 H INR 1.2 H APTT PTT Ratio Sodium 139 Potassium 4.2 Chloride 96 L Carbon Dioxide 28 Anion Gap 15 H BUN 65 H Creatinine 4.16 H D Est Cr Clr Drug Dosing 13.3 Est GFR ( Amer) 13.2 Est GFR (Non-Af Amer) 11.4 BUN/Creatinine Ratio 15.6 Glucose 82 Calcium 8.8 Phosphorus 5.2 H Magnesium 2.1 Total Bilirubin 1.3 H AST 16 ALT 5 L Alkaline Phosphatase 178 H Troponin I High Sens Total Protein 5.7 L Albumin 3.5 Globulin 2.2 L Albumin/Globulin Ratio 1.6 POC Stool Occult Blood SARS-CoV-2 (PCR) Influenza Type A (PCR) Influenza Type B (PCR) RSV (RT-PCR) Blood Type Blood Type Recheck Antibody Screen Crossmatch 05/16/23 Unknown WBC RBC Hgb Hct MCV MCH MCHC RDW Std Deviation RDW Coeff of David Plt Count MPV Immature Gran % (Auto) Neut % (Auto) Lymph % (Auto) [place] % (Auto) Eos % (Auto) Baso % (Auto) Neut # (Auto) Lymph # (Auto) [place] # (Auto) Eos # (Auto) Baso # (Auto) Immature Gran # (Auto) Hypochromasia PT INR APTT PTT Ratio Sodium Potassium Chloride Carbon Dioxide Anion Gap BUN Creatinine Est Cr Clr Drug Dosing Est GFR ( Amer) Est GFR (Non-Af Amer) BUN/Creatinine Ratio Glucose Calcium Phosphorus Magnesium Total Bilirubin AST ALT Alkaline Phosphatase Troponin I High Sens Total Protein Albumin Globulin Albumin/Globulin Ratio POC Stool Occult Blood SARS-CoV-2 (PCR) NEGATIVE Influenza Type A (PCR) Negative Influenza Type B (PCR) Negative RSV (RT-PCR) Negative Blood Type Blood Type Recheck Antibody Screen Crossmatch
[2023-05-16] MEDS: CALCIUM ACETATE 667 MG CAP/TAB PO SCH ×4 (09:12→17:44)
[2023-05-16] MEDS: SERTRALINE HCL 100 MG TABLET PO SCH (09:13)
[2023-05-16] MEDS: SODIUM BICARBONATE 650 MG TAB PO SCH ×2 (09:13→21:51)
[2023-05-16] MEDS: allopurinoL 100 MG TAB PO SCH (09:13)
[2023-05-16] MEDS: MONTELUKAST SODIUM 10 MG TABLET PO SCH (09:13)
[2023-05-16] MEDS: LEVOTHYROXINE SODIUM 112 MCG TABLET PO SCH (09:13)
--- NOTE | 2023-05-16 10:25 | Anesthesiology Consultation ---
Date of Service May 16, 2023 Assessment & Plan (1) Encounter for pre-operative examination: Chart Review Chart Review: Acceptable Risk for Surgery, Patient NOT seen in Pre Admission Testing and piping blocker initiated Consults Requested none Proposed Anesthesia Anesthesia Type: MAC History Surgery Operation Date: 05/16/23 18:00 Proposed Procedures p Esophagogastroduodenoscopy Dr Fletcher - Tirso Cordero MD Height/Weight Height: 5 ft Weight: 68 kg Allergies Allergy/AdvReac Type Severity Reaction Status Date / Time Penicillins Allergy Unknown Verified 03/12/19 06:15 Medications Home Medications Medication Instructions Recorded Confirmed Last Taken allopurinol 100 mg tablet 100 mg PO DAILY 03/12/19 05/15/23 05/15/23 calcium acetate(phosphat bind) 667 667 mg PO TID #90 caps 03/12/19 05/15/23 Unknown mg capsule epoetin cate-epbx 10,000 unit/mL 10,000 units subcut MONTHLY #1 mL 03/12/19 05/15/23 Unknown injection solution (Retacrit) levothyroxine 50 mcg tablet 112 mcg PO DAILY 03/12/19 05/15/23 Unknown sertraline 100 mg tablet 100 mg PO DAILY 03/12/19 05/15/23 Unknown sodium bicarbonate 650 mg tablet 650 mg PO BID #60 tabs 03/12/19 05/15/23 Unk nown carvedilol 6.25 mg tablet 6.25 mg PO BID 05/15/23 05/15/23 05/15/23 clotrimazole-betamethasone 1 See Rx Instructions .Route .COMPLEX 05/15/23 05/15/23 Unknown %-0.05 % topical cream montelukast 10 mg tablet 10 mg PO DAILY 05/15/23 05/15/23 Unknown pantoprazole 20 mg tablet,delayed 20 mg PO DAILY 05/15/23 05/15/23 Unknown release Active Medications Generic Name Dose Route Start Last Admin Trade Name Freq PRN Reason Stop Dose Admin Allopurinol 100 mg 05/16/23 09:00 05/16/23 09:13 Allopurinol 100 Mg Tab PO 06/15/23 08:59 100 mg DAILY GONZALO Administration Calcium Acetate 667 mg 05/15/23 21:00 05/16/23 09:12 Calcium Acetate 667 Mg Cap/Tab PO 06/14/23 20:59 667 mg TIDM GONZALO Administration Pantoprazole Sodium 40 mg/ 10 mls @ 5 mls/min 05/15/23 21:00 05/16/23 09:12 Syringe IV 06/14/23 20:59 5 mls/min BID GONZALO Administration Levothyroxine Sodium 112 mcg 05/16/23 09:00 05/16/23 09:13 Levothyroxine Sodium 112 Mcg Tablet PO 06/15/23 08:59 112 mcg DAILY GONZALO Administration Montelukast Sodium 10 mg 05/16/23 09:00 05/16/23 09:13 Montelukast Sodium 10 Mg Tablet PO 06/15/23 08:59 10 mg DAILY GONZALO Administration Ondansetron HCl 4 mg 05/15/23 19:57 05/16/23 09:22 Ondansetron Inj 2 Mg/Ml 2 Ml Vial IV 06/14/23 19:56 4 mg Q4H PRN Administration Nausea And Vomiting Pantoprazole Sodium 40 mg 05/16/23 09:00 05/16/23 09:13 Pantoprazole 40 Mg Tab PO 06/15/23 08:59 40 mg DAILY GONZALO Administration Sertraline HCl 100 mg 05/16/23 09:00 05/16/23 09:13 Sertraline Hcl 100 Mg Tablet PO 06/15/23 08:59 100 mg DAILY GONZALO Administration Sodium Bicarbonate 650 mg 05/15/23 21:00 05/16/23 09:13 Sodium Bicarbonate 650 Mg Tab PO 06/14/23 20:59 650 mg BID GONZALO Administration Past Medical History Medical History (Updated 05/16/23 @ 10:26 by Rk Levine MD) Asymptomatic proteinuria Benign essential hypertension Chronic anemia Chronic kidney disease, stage V Encounter for pre-operative examination Hyperphosphatemia Hypothyroidism Metabolic acidosis Secondary hyperparathyroidism of renal origin Vitamin D deficiency Past Family History Family History Father Hypertension Mother Dyslipidemia Parkinsonism Grandfather (Maternal) Parkinsonism Past Surgical History Surgical History A-V fistula Hx of section Social History Smoking Status: Never smoker Hx Alcohol Use: No Hx Substance Use: No Physical Exam Vital Signs Last Vital Signs Temp 36.6 C 05/16/23 08:09 Pulse 81 05/16/23 08:09 Resp 19 05/16/23 08:09 BP 106/68 05/16/23 08:09 Pulse Ox 98 05/16/23 08:09 O2 Del Method Room Air 05/16/23 08:09 Testing Laboratory Results 05/16/23 06:11 05/16/23 06:11 PT 13.2 Seconds (9.0-12.0) H 05/16/23 06:11 INR 1.2 (0.9-1.1) H 05/16/23 06:11 APTT 29.9 Seconds (21.0-31.0) 05/15/23 15:00 Blood Type O Positive 05/15/23 15:00 Antibody Screen NEGATIVE 05/15/23 15:00 Electrocardiogram Date: 05/15/23 Test Reason : Blood Pressure : / mmHG Vent. Rate : 079 BPM Atrial Rate : 079 BPM P-R Int : 148 ms QRS Dur : 084 ms QT Int : 392 ms P-R-T Axes : 039 034 188 degrees QTc Int : 449 ms Normal sinus rhythm Nonspecific ST and T wave abnormality Abnormal ECG No previous ECGs available Confirmed by Trey Thakkar ([id number]) on 05/15/2023 4:31:47 PM Chest X-Ray Date: 05/15/23 XR chest 1V portable HISTORY: 53 years-old Female lightheadedness COMPARISON: None TECHNIQUE: AP view of the chest FINDINGS: Cardiac silhouette is enlarged. Mild interstitial coarsening may be chronic. Mild linear bibasilar densities. No pneumothorax, pleural effusion or lobar airspace consolidation. Prominent confluent radiodense foci/calcified structures obscure the bilateral shoulders. IMPRESSION: Cardiomegaly with mild bibasilar atelectasis.
--- NOTE | 2023-05-16 11:19 | History & Physical Report ---
Date of Service May 16, 2023 Assessment & Plan Admission and Anticipated Discharge Date Admission Date: May 15, 2023 History of Present Illness Primary Care Provider: Hardik Delaney Anemia, dark stool Cv: RRR Resp: CTA Abd: soft A/p: EGD Allergies Allergy/AdvReac Type Severity Reaction Status Date / Time Penicillins Allergy Unknown Verified 03/12/19 06:15 Home Medications Medication Instructions Recorded Confirmed Type allopurinol 100 mg tablet 100 mg PO DAILY 03/12/19 05/15/23 History calcium acetate(phosphat bind) 667 667 mg PO TID #90 caps 03/12/19 05/15/23 History mg capsule epoetin cate-epbx 10,000 unit/mL 10,000 units subcut MONTHLY #1 mL 03/12/19 05/15/23 History injection solution (Retacrit) levothyroxine 50 mcg tablet 112 mcg PO DAILY 03/12/19 05/15/23 History sertraline 100 mg tablet 100 mg PO DAILY 03/12/19 05/15/23 History sodium bicarbonate 650 mg tablet 650 mg PO BID #60 tabs 03/12/19 05/15/23 History carvedilol 6.25 mg tablet 6.25 mg PO BID 05/15/23 05/15/23 History clotrimazole-betamethasone 1 See Rx Instructions .Route .COMPLEX 05/15/23 05/15/23 History %-0.05 % topical cream montelukast 10 mg tablet 10 mg PO DAILY 05/15/23 05/15/23 History pantoprazole 20 mg tablet,delayed 20 mg PO DAILY 05/15/23 05/15/23 History release Past Med/Surg History Medical History (Updated 05/16/23 @ 10:26 by Rk Levine MD) Asymptomatic proteinuria Benign essential hypertension Chronic anemia Chronic kidney disease, stage V Encounter for pre-operative examination Hyperphosphatemia Hypothyroidism Metabolic acidosis Secondary hyperparathyroidism of renal origin Vitamin D deficiency Surgical History A-V fistula Hx of section Family History Father Hypertension Mother Dyslipidemia Parkinsonism Grandfather (Maternal) Parkinsonism Social History Smoking Status: Never smoker Hx Alcohol Use: No Hx Substance Use: No Preferred Language: Belarusian Communication Ability: Effective Layout Man Required: No Beliefs That Will Affect Care: None Current Living Situation: Spouse and Family Other Information That Helps Us Care for You: No Feels Safe at Home: Yes Safety Concerns: Feels Safe At This Time Assistive Devices: None Results & Data Results & Data Vital Signs (Past 12 Hours) Vital Signs Temp Pulse Pulse Resp BP BP Pulse Ox 05/16/23 08:09 36.6 C 81 19 106/68 98 05/16/23 03:56 37.2 C 82 18 97/61 L 97 05/16/23 02:19 36.7 C 78 22 108/66 96 05/16/23 00:58 05/16/23 00:30 81 22 99/61 L 05/16/23 00:15 83 26 H 100/59 L 05/16/23 00:00 83 24 93/60 L 05/15/23 23:45 83 22 110/65 05/15/23 23:30 82 17 106/56 L 05/15/23 23:22 82 O2 Del Method 05/16/23 08:09 Room Air 05/16/23 03:56 Room Air 05/16/23 02:19 Room Air 05/16/23 00:58 Room Air 05/16/23 00:30 05/16/23 00:15 05/16/23 00:00 05/15/23 23:45 05/15/23 23:30 05/15/23 23:22 Code Status & VTE Plan VTE Prophylaxis Plan VTE Prophylaxis will be ordered: Yes
[2023-05-16] MEDS ORDERED: PROPOFOL IV EMULSION 10 MG/ML 20 ML VIAL IV ONE ×2 (11:23→13:17)
[2023-05-16] MEDS ORDERED: LIDOCAINE 2% 2 ML VIAL/AMP(20MG/ML) INFIL ONE ×2 (11:23→13:17)
--- NOTE | 2023-05-16 11:29 | Hospitalist Progress Note ---
Date of Service May 16, 2023 Assessment & Plan (1) GI bleed: (2) Chronic anemia: Plan: This is a 53-year-old female with PMHx of's end-stage renal disease on dialysis x 4 years, (due to solitary kidney, frequent UTIs, pre-eclampsia, gout, HTN and reflux nephropathy), with regular HD schedule MWF with brachiocephalic AVF which required AV fistulogram stent and peripheral angioplasty 04/02/23, severe , severe TR, mild MR, severe pulmonary hypertension, anemia of chronic disease and iron deficiency, requiring multiple transfusions in the past, HTN, ascites (first began in November 2022 requiring paracentesis), secondary hyperparathyroidism, Vit D deficiency, hypothyroidism and depression who presents to the hospital with 1 day of lightheadedness and dizziness. History of hospitalization in [facility] in middle of April for right heart cath. She was found to have anemia and was transfused. Endoscopy was not performed as patient's hemoglobin remained stable. She was discharged on Protonix 20 mg once a day - BP hypotensive upon arival to ER, 89/49, initially given 250 ml, type and cross completed, -Hemoglobin found to be 6.1 on admission; transfused 2 units of blood. Repeat hemoglobin of 8.8 today. - Pt with melanotic stools on and off with diarrhea over the past 2 months, patient has been receiving IV iron with dialysis transfusions -Continue on Protonix twice daily -GI consulted; plan for possible endoscopy today. (3) ESRD (end stage renal disease): Plan: -Nephrology consulted, follows with Dr. Hussein as an outpatient -Normal HD schedule MWF, received 2.5 hours session 05/15/23, -Avoid nephrotoxic agents, renally reduce medications (4) Benign essential hypertension: (5) Severe aortic stenosis: (6) Pulmonary hypertension: Plan: -Follows with Dr. Varma with cardiology as outpatient -Recently had multiple medications discontinued or reduced including (DC meds amlodipine, Lasix) -Hold Coreg which is 6.25 mg BID for now with BP Cardiology consulted. Echocardiogram pending. (7) Hypothyroidism: Plan: - Cont levothyroxine 112 mcg daily (8) Vitamin D deficiency: Plan: - Chronic, stable DVT ppx: teds, scds CODE: FULL Access: 1 PIV, LUE AVF Dispo: PT OT ordered Time spent evaluating patient, direct bedside care, chart review, placing orders, interpretation of diagnostic studies, discussion with consultants, patient, and family members, as well as other required patient management activities is 60 minutes Please note the above document was generated using voice recognition software. It may contain grammatical, syntax or spelling errors. Any formal questions or concerns about the content, text or information contained within the body of this dictation should be directly addressed to the provider for clarification Admission and Anticipated Discharge Date Admission Date: May 15, 2023 Subjective Patient seen and examined at bedside. She is sitting on a chair at the side of the bed; not in distress. She reports that she is feeling better since admission/transfusion. No longer feeling dizzy Review of Systems Review of Systems: All systems reviewed & are unremarkable except as noted in Subjective Physical Exam Physical Exam: General: awake, alert, no apparent distress, comfortable. Head: Normocephalic, atraumatic ENT: PERRL, EOMI, no pharyngeal exudate, mucous membranes dry, no carotid bruits Chest: Clear to auscultation, on room air, no adventitious breath sounds Cardiac: Regular rate and rhythm, +loud systolic ejection murmur Grade III/, no JVD, normal peripheral pulses, good capillary refill Abdominal: NABS x 4 quadrants, soft, +distended, + fluid wave, minimally tender to palpation, no rebound or guarding Extremities: LUE AVF with thrill and bruit, Normal inspection, no peripheral edema or erythema, calfs nontender to palpation Psych: Normal mood and affect Neuro: AAO x 3, strength intact bilaterally and rated 5/5, no motor deficits, speech is clear, no peripheral sensory deficits Results & Data Results & Data Vital Signs (Past 12 Hours) Vital Signs Temp Pulse Pulse Resp BP BP Pulse Ox 05/16/23 06:00 81 05/16/23 08:09 36.6 C 81 19 106/68 98 05/16/23 03:56 37.2 C 82 18 97/61 L 97 05/16/23 02:19 36.7 C 78 22 108/66 96 05/16/23 00:58 05/16/23 00:30 81 22 99/61 L 05/16/23 00:15 83 26 H 100/59 L 05/16/23 00:00 83 24 93/60 L 05/15/23 23:45 83 22 110/65 05/15/23 23:30 82 17 106/56 L 05/15/23 23:22 82 O2 Del Method 05/16/23 06:00 05/16/23 08:09 Room Air 05/16/23 03:56 Room Air 05/16/23 02:19 Room Air 05/16/23 00:58 Room Air 05/16/23 00:30 05/16/23 00:15 05/16/23 00:00 05/15/23 23:45 05/15/23 23:30 05/15/23 23:22 Laboratory Results Laboratory Results WBC 6.18 K/ul (4.8-10.8) 05/16/23 06:11 RBC 2.92 M/uL (4.20-5.40) L 05/16/23 06:11 Hgb 8.8 g/dl (12.0-16.0) L 05/16/23 06:11 Hct 26.9 % (37.0-47.0) L 05/16/23 06:11 MCV 92.1 fL (80.0-100.0) D 05/16/23 06:11 MCH 30.1 pg (25.0-34.0) 05/16/23 06:11 MCHC 32.7 g/dL (32.0-36.0) 05/16/23 06:11 RDW Std Deviation 64.4 fL (36.4-46.3) H 05/16/23 06:11 RDW Coeff of David 19.8 % (11.5-14.5) H 05/16/23 06:11 Plt Count 206 K/uL (130-400) 05/16/23 06:11 MPV 11.0 fL (9.4-12.4) 05/16/23 06:11 Immature Gran % (Auto) 0.2 % 05/15/23 15:00 Neut % (Auto) 78.6 % 05/15/23 15:00 Lymph % (Auto) 11.0 % 05/15/23 15:00 [place] % (Auto) 9.4 % 05/15/23 15:00 Eos % (Auto) 0.0 % 05/15/23 15:00 Baso % (Auto) 0.8 % 05/15/23 15:00 Neut # (Auto) 3.92 K/uL (1.40-6.50) 05/15/23 15:00 Lymph # (Auto) 0.55 K/uL (1.20-3.40) L 05/15/23 15:00 [place] # (Auto) 0.47 K/uL (0.11-0.59) 05/15/23 15:00 Eos # (Auto) 0.00 K/uL (0.00-0.50) 05/15/23 15:00 Baso # (Auto) 0.04 K/uL (0.00-0.20) 05/15/23 15:00 Immature Gran # (Auto) 0.01 K/uL (0.01-0.20) 05/15/23 15:00 Hypochromasia Present 05/15/23 15:00 PT 13.2 Seconds (9.0-12.0) H 05/16/23 06:11 INR 1.2 (0.9-1.1) H 05/16/23 06:11 APTT 29.9 Seconds (21.0-31.0) 05/15/23 15:00 PTT Ratio 1.1 05/15/23 15:00 Sodium 139 mmol/L (136-145) 05/16/23 06:11 Potassium 4.2 mmol/L (3.5-5.1) 05/16/23 06:11 Chloride 96 mmol/L (98-107) L 05/16/23 06:11 Carbon Dioxide 28 mmol/L (21-32) 05/16/23 06:11 Anion Gap 15 (3-11) H 05/16/23 06:11 BUN 65 mg/dl (6-23) H 05/16/23 06:11 Creatinine 4.16 mg/dl (0.6-1.2) H D 05/16/23 06:11 Est Cr Clr Drug Dosing 13.3 ml/min 05/16/23 06:11 Est GFR ( Amer) 13.2 ml/min 05/16/23 06:11 Est GFR (Non-Af Amer) 11.4 ml/min 05/16/23 06:11 BUN/Creatinine Ratio 15.6 (10-20) 05/16/23 06:11 Glucose 82 mg/dl (70-99(Fasting)) 05/16/23 06:11 Calcium 8.8 mg/dl (8.6-10.3) 05/16/23 06:11 Phosphorus 5.2 mg/dl (2.5-4.9) H 05/16/23 06:11 Magnesium 2.1 mg/dl (1.7-2.4) 05/16/23 06:11 Total Bilirubin 1.3 mg/dl (0.2-1.0) H 05/16/23 06:11 AST 16 U/L (13-39) 05/16/23 06:11 ALT 5 U/L (7-52) L 05/16/23 06:11 Alkaline Phosphatase 178 U/L (34-104) H 05/16/23 06:11 Troponin I High Sens 8.1 pg/ml (0-14) 05/15/23 15:00 Total Protein 5.7 gm/dl (6.0-8.3) L 05/16/23 06:11 Albumin 3.5 gm/dl (3.4-5.0) 05/16/23 06:11 Globulin 2.2 gm/dl (2.5-4.0) L 05/16/23 06:11 Albumin/Globulin Ratio 1.6 (0.9-2) 05/16/23 06:11 POC Stool Occult Blood Positive (Negative) A 05/15/23 15:12 Blood Type O Positive 05/15/23 15:00 Blood Type Recheck O Positive 05/15/23 16:14 Antibody Screen NEGATIVE 05/15/23 15:00 Crossmatch See Detail 05/15/23 15:00 Impressions Chest X-Ray 05/15/23 16:19 XR chest 1V portable HISTORY: 53 years-old Female lightheadedness COMPARISON: None TECHNIQUE: AP view of the chest FINDINGS: Cardiac silhouette is enlarged. Mild interstitial coarsening may be chronic. Mild linear bibasilar densities. No pneumothorax, pleural effusion or lobar airspace consolidation. Prominent confluent radiodense foci/calcified structures obscure the bilateral shoulders. IMPRESSION: Cardiomegaly with mild bibasilar atelectasis. ACT 112: Negative or not required by law. The above report was generated using voice recognition software. It may contain grammatical, syntax or spelling errors. Electronically signed by: Golden Mcduffie M.D. 05/15/2023 4:57 PM Portal Vein US 05/16/23 00:00 US duplex portal hepatic veins HISTORY: 53 years-old Female Eval portal vasculature acute right upper quadrant abdominal pain COMPARISON: None TECHNIQUE: Multiple real-time sonographic images of the hepatic vasculature was obtained assessing grayscale appearance, color and spectral flow FINDINGS: Upper abdominal ascites is noted. Patent hepatic and portal veins with hepatopedal flow. Hepatic artery is patent with peak systolic velocities measuring up to 83.4 cm/s. IMPRESSION: 1. Patent hepatic vasculature. 2. Upper abdominal ascites. ACT 112: Negative or not required by law. The above report was generated using voice recognition software. It may contain grammatical, syntax or spelling errors. Electronically signed by: Golden Mcduffie M.D. 05/16/2023 9:02 AM
[2023-05-16 11:34] LABS: Influenza A virus by PCR Negative (Neg); Influenza B virus by PCR Negative (Neg); RSV by PCR Negative (Neg); SARS CoV2 RNA(COVID-19) Ceph NEGATIVE (Negative)
--- NOTE | 2023-05-16 13:06 | GI REPORT ---
Patient Name: Anayeli Whaley Procedure Date: 05/16/2023 11:40 AM Date of : 1970 Admit Type: Inpatient Age: 53 Gender: Female Attending MD: Tirso Cordero MD, Procedure: Upper GI endoscopy Providers: Tirso Cordero MD Referring MD: Referred Self Indications: Iron deficiency anemia secondary to chronic blood loss Medicines: See the Anesthesia note for documentation of the administered medications Complications: No immediate complications. Estimated Blood Loss: Estimated blood loss: none. Procedure: Pre-Anesthesia Assessment: - ASA Grade Assessment: IV - A patient with severe systemic disease that is a constant threat to life. After obtaining informed consent, the endoscope was passed under direct vision. Throughout the procedure, the patient's blood pressure, pulse, and oxygen saturations were monitored continuously. The Endoscope was introduced through the mouth, with the intention of advancing to the duodenum. The scope was advanced to the gastric body before the procedure was aborted. Medications were given. The upper GI endoscopy was accomplished without difficulty. Findings: Esophagus normal. The patient vomited during the procedure, and the procedure was aborted. Recommendation: - Discharge patient to floor. Repeat exam with general intubation. Tirso Cordero M.D. Tirso Cordero MD 05/16/2023 1:05:51 PM This report has been signed electronically. Note Initiated On: 05/16/2023 11:40 AM Number of Addenda: 0 I attest to the content of the Intraoperative Record and orders documented therein, exceptions below {[id number]}
[2023-05-16] MEDS ORDERED: fentaNYL citrate PF 100 MCG/2 ML VIAL ONE (13:17)
[2023-05-16] MEDS ORDERED: ROCURONIUM BROMIDE 10 MG/ML 5 ML VIAL IV ONE (13:17)
[2023-05-16] MEDS ORDERED: DEXAMETHASONE SOD INJ 4 MG/ML VIAL ONE (13:17)
[2023-05-16] MEDS ORDERED: ONDANSETRON INJ 2 MG/ML 2 ML VIAL ONE (13:17)
[2023-05-16] MEDS ORDERED: SUCCINYLCHOLINE CHLORIDE 20 MG/ML 10 ML VIAL IV ONE (13:17)
[2023-05-16] MEDS ORDERED: MIDAZOLAM HCL 1 MG/ML 2ML VIAL ONE (13:18)
[2023-05-16] MEDS ORDERED: PHENYLEPHRINE HCL 10 MG/ML VIAL ONE (13:27)
[2023-05-16] MEDS ORDERED: ePHEDrine sulfate 50 MG/ML AMP IV PRN (13:54)
[2023-05-16] MEDS ORDERED: ATROPINE SULFATE 0.1 MG/ML 10ML SYR IV PRN (13:54)
[2023-05-16] MEDS ORDERED: ONDANSETRON INJ 2 MG/ML 2 ML VIAL IV PRN (13:54)
[2023-05-16] MEDS ORDERED: fentaNYL citrate PF 100 MCG/2 ML VIAL IV PRN (13:54)
--- NOTE | 2023-05-16 14:36 | Anesthesiology Progress Note ---
Date of Service May 16, 2023 Anesthesia Post Procedure Vital Signs Vital Signs: Temp Pulse Pulse Pulse Resp BP BP 05/16/23 14:30 80 19 98/51 L 05/16/23 14:22 36.0 C L 80 19 91/45 L 05/16/23 13:30 36.6 C 83 16 112/64 05/16/23 12:56 81 16 106/59 L 05/16/23 12:41 81 16 98/55 L 05/16/23 12:27 79 14 86/48 L 05/16/23 11:15 37 C 86 18 103/55 L 05/16/23 06:00 81 05/16/23 08:09 36.6 C 81 19 106/68 05/16/23 03:56 37.2 C 82 18 97/61 L 05/16/23 02:19 36.7 C 78 22 108/66 05/16/23 00:58 05/16/23 00:30 81 22 99/61 L 05/16/23 00:15 83 26 H 100/59 L 05/16/23 00:00 83 24 93/60 L 05/15/23 23:45 83 22 110/65 05/15/23 23:30 82 17 106/56 L 05/15/23 23:15 82 20 101/59 L 05/15/23 23:00 82 22 104/59 L 05/15/23 22:45 81 19 101/59 L 05/15/23 22:30 81 16 112/65 05/15/23 22:15 80 20 99/57 L 05/15/23 22:00 79 16 99/56 L 05/15/23 23:22 82 05/15/23 21:45 82 20 94/59 L 05/15/23 21:30 81 20 100/55 L 05/15/23 21:15 81 18 102/58 L 05/15/23 21:00 81 23 100/57 L 05/15/23 20:50 82 23 99/57 L 05/15/23 20:45 79 14 94/64 L 05/15/23 20:30 81 18 96/58 L 05/15/23 20:15 82 23 93/55 L 05/15/23 21:05 36.8 C 80 18 100/57 L 05/15/23 20:50 37.0 C 80 18 99/57 L 05/15/23 20:50 37.0 C 82 18 99/57 L 05/15/23 20:10 81 20 05/15/23 20:00 81 23 05/15/23 20:00 91/55 L 05/15/23 19:45 78 19 90/55 L 05/15/23 19:30 77 22 97/55 L 05/15/23 19:15 77 20 91/54 L 05/15/23 19:00 76 22 93/56 L 05/15/23 19:18 76 05/15/23 18:45 77 20 94/51 L 05/15/23 17:54 75 22 92/54 L 05/15/23 17:48 74 23 92/56 L 05/15/23 17:45 74 21 87/54 L 05/15/23 16:30 74 25 H 83/53 L 05/15/23 18:22 36.9 C 76 18 89/49 L 05/15/23 17:52 36.9 C 75 21 92/54 L 05/15/23 17:37 36.9 C 74 22 84/49 L 05/15/23 17:20 36.9 C 74 21 85/50 L 05/15/23 15:19 75 05/15/23 15:15 75 18 89/49 L 05/15/23 15:00 05/15/23 15:00 75 18 89/49 L 05/15/23 14:43 36.6 C 91 H 21 85/47 L Pulse Ox O2 Del Method O2 Flow Rate 05/16/23 14:30 96 Oxymask 5 05/16/23 14:22 98 Oxymask 5 05/16/23 13:30 94 Room Air 05/16/23 12:56 94 Room Air 05/16/23 12:41 96 Oxymask 2 05/16/23 12:27 96 Oxymask 10 05/16/23 11:15 96 Room Air 05/16/23 06:00 05/16/23 08:09 98 Room Air 05/16/23 03:56 97 Room Air 05/16/23 02:19 96 Room Air 05/16/23 00:58 Room Air 05/16/23 00:30 05/16/23 00:15 05/16/23 00:00 05/15/23 23:45 05/15/23 23:30 05/15/23 23:15 05/15/23 23:00 05/15/23 22:45 05/15/23 22:30 05/15/23 22:15 100 05/15/23 22:00 100 05/15/23 23:22 05/15/23 21:45 99 05/15/23 21:30 100 05/15/23 21:15 99 05/15/23 21:00 98 05/15/23 20:50 95 05/15/23 20:45 96 05/15/23 20:30 94 05/15/23 20:15 97 05/15/23 21:05 97 05/15/23 20:50 95 05/15/23 20:50 96 05/15/23 20:10 95 05/15/23 20:00 98 05/15/23 20:00 05/15/23 19:45 98 05/15/23 19:30 97 05/15/23 19:15 97 05/15/23 19:00 98 05/15/23 19:18 05/15/23 18:45 97 Room Air 05/15/23 17:54 96 05/15/23 17:48 96 05/15/23 17:45 90 05/15/23 16:30 97 05/15/23 18:22 97 05/15/23 17:52 94 05/15/23 17:37 94 05/15/23 17:20 94 05/15/23 15:19 05/15/23 15:15 98 Room Air 05/15/23 15:00 98 05/15/23 15:00 98 Room Air 05/15/23 14:43 979 H Room Air Transfer of Care Handoff Completed per policy Notes Mental Status: alert / awake / arousable and participated in evaluation Patient Amnestic to Procedure: Yes Nausea / Vomiting: adequately controlled Pain: adequately controlled Airway Patency, RR, SpO2: stable & adequate BP & HR: stable & adequate Hydration State: stable & adequate Anesthetic Complications: no major complications apparent and Pt Satisfied with anesthetic care
--- NOTE | 2023-05-16 14:44 | GI REPORT ---
Patient Name: Anayeli Whaley Procedure Date: 05/16/2023 1:15 PM Date of : 1970 Admit Type: Inpatient Age: 53 Gender: Female Attending MD: Tirso Cordero MD, Procedure: Upper GI endoscopy Providers: Tirso Cordero MD Referring MD: Felix Bright Md Indications: Acute post hemorrhagic anemia Medicines: See the Anesthesia note for documentation of the administered medications Complications: No immediate complications. Estimated Blood Loss: Estimated blood loss: none. Procedure: Pre-Anesthesia Assessment: - ASA Grade Assessment: III - A patient with severe systemic disease. After obtaining informed consent, the endoscope was passed under direct vision. Throughout the procedure, the patient's blood pressure, pulse, and oxygen saturations were monitored continuously. The Endoscope was introduced through the mouth, and advanced to the third part of duodenum. The upper GI endoscopy was accomplished without difficulty. The patient tolerated the procedure well. Findings: The examined esophagus was normal. There was bilious fluid in the stomach and esophagus, with free reflux noted throughout the exam. There was diffuse pallor and friability of the body of the stomach. This may be related to chemical gastritis, from phosphate binder or other medicaiton, or possibly from ischemia. This was biopsied. There was a blood clot in the antrum, with fresh oozing in the antrum. 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 The area of oozing was ablated with APC. 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 The remainder of the duodenum was normal. Recommendation: - Discharge patient to floor. Clears today, then full liquids x 2 days. IV bolus PPI x 48 hours, then transition to once daily PPI indefinitely. Follow hgb daily. Can resume antiplatelet medication.Complete 2 weeks of carafate, then d/c. Will sign off, please reconsult when needed. Tirso Cordero M.D. Tirso Cordero MD 05/16/2023 2:44:13 PM This report has been signed electronically. Note Initiated On: 05/16/2023 1:15 PM Number of Addenda: 0 I attest to the content of the Intraoperative Record and orders documented therein, exceptions below {[id number]}
--- NOTE | 2023-05-16 14:55 | Anesthesiology Progress Note ---
Date of Service May 16, 2023 Anesthesia Post Procedure Vital Signs Vital Signs: Temp Pulse Pulse Pulse Resp BP BP 05/16/23 14:50 36.2 C L 80 18 96/56 L 05/16/23 14:40 79 17 96/55 L 05/16/23 14:30 80 19 98/51 L 05/16/23 14:22 36.0 C L 80 19 91/45 L 05/16/23 13:30 36.6 C 83 16 112/64 05/16/23 12:56 81 16 106/59 L 05/16/23 12:41 81 16 98/55 L 05/16/23 12:27 79 14 86/48 L 05/16/23 11:15 37 C 86 18 103/55 L 05/16/23 06:00 81 05/16/23 08:09 36.6 C 81 19 106/68 05/16/23 03:56 37.2 C 82 18 97/61 L 05/16/23 02:19 36.7 C 78 22 108/66 05/16/23 00:58 05/16/23 00:30 81 22 99/61 L 05/16/23 00:15 83 26 H 100/59 L 05/16/23 00:00 83 24 93/60 L 05/15/23 23:45 83 22 110/65 05/15/23 23:30 82 17 106/56 L 05/15/23 23:15 82 20 101/59 L 05/15/23 23:00 82 22 104/59 L 05/15/23 22:45 81 19 101/59 L 05/15/23 22:30 81 16 112/65 05/15/23 22:15 80 20 99/57 L 05/15/23 22:00 79 16 99/56 L 05/15/23 23:22 82 05/15/23 21:45 82 20 94/59 L 05/15/23 21:30 81 20 100/55 L 05/15/23 21:15 81 18 102/58 L 05/15/23 21:00 81 23 100/57 L 05/15/23 20:50 82 23 99/57 L 05/15/23 20:45 79 14 94/64 L 05/15/23 20:30 81 18 96/58 L 05/15/23 20:15 82 23 93/55 L 05/15/23 21:05 36.8 C 80 18 100/57 L 05/15/23 20:50 37.0 C 80 18 99/57 L 05/15/23 20:50 37.0 C 82 18 99/57 L 05/15/23 20:10 81 20 05/15/23 20:00 81 23 05/15/23 20:00 91/55 L 05/15/23 19:45 78 19 90/55 L 05/15/23 19:30 77 22 97/55 L 05/15/23 19:15 77 20 91/54 L 05/15/23 19:00 76 22 93/56 L 05/15/23 19:18 76 05/15/23 18:45 77 20 94/51 L 05/15/23 17:54 75 22 92/54 L 05/15/23 17:48 74 23 92/56 L 05/15/23 17:45 74 21 87/54 L 05/15/23 16:30 74 25 H 83/53 L 05/15/23 18:22 36.9 C 76 18 89/49 L 05/15/23 17:52 36.9 C 75 21 92/54 L 05/15/23 17:37 36.9 C 74 22 84/49 L 05/15/23 17:20 36.9 C 74 21 85/50 L 05/15/23 15:19 75 05/15/23 15:15 75 18 89/49 L 05/15/23 15:00 05/15/23 15:00 75 18 89/49 L Pulse Ox O2 Del Method O2 Flow Rate 05/16/23 14:50 98 Nasal Cannula 2 05/16/23 14:40 94 Nasal Cannula 2 05/16/23 14:30 96 Oxymask 5 05/16/23 14:22 98 Oxymask 5 05/16/23 13:30 94 Room Air 05/16/23 12:56 94 Room Air 05/16/23 12:41 96 Oxymask 2 05/16/23 12:27 96 Oxymask 10 05/16/23 11:15 96 Room Air 05/16/23 06:00 05/16/23 08:09 98 Room Air 05/16/23 03:56 97 Room Air 05/16/23 02:19 96 Room Air 05/16/23 00:58 Room Air 05/16/23 00:30 05/16/23 00:15 05/16/23 00:00 05/15/23 23:45 05/15/23 23:30 05/15/23 23:15 05/15/23 23:00 05/15/23 22:45 05/15/23 22:30 05/15/23 22:15 100 05/15/23 22:00 100 05/15/23 23:22 05/15/23 21:45 99 05/15/23 21:30 100 05/15/23 21:15 99 05/15/23 21:00 98 05/15/23 20:50 95 05/15/23 20:45 96 05/15/23 20:30 94 05/15/23 20:15 97 05/15/23 21:05 97 05/15/23 20:50 95 05/15/23 20:50 96 05/15/23 20:10 95 05/15/23 20:00 98 05/15/23 20:00 05/15/23 19:45 98 05/15/23 19:30 97 05/15/23 19:15 97 05/15/23 19:00 98 05/15/23 19:18 05/15/23 18:45 97 Room Air 05/15/23 17:54 96 05/15/23 17:48 96 05/15/23 17:45 90 05/15/23 16:30 97 05/15/23 18:22 97 05/15/23 17:52 94 05/15/23 17:37 94 05/15/23 17:20 94 05/15/23 15:19 05/15/23 15:15 98 Room Air 05/15/23 15:00 98 05/15/23 15:00 98 Room Air Transfer of Care Handoff Completed per policy Notes Mental Status: alert / awake / arousable and participated in evaluation Patient Amnestic to Procedure: Yes Nausea / Vomiting: adequately controlled Pain: adequately controlled Airway Patency, RR, SpO2: stable & adequate BP & HR: stable & adequate Hydration State: stable & adequate Anesthetic Complications: no major complications apparent
--- NOTE | 2023-05-16 16:04 | Nephrology Consultation ---
Date of Consultation May 16, 2023 Assessment & Plan (1) ESRD (end stage renal disease): HD MWF. Receives HD at [facility] as an outpatient. Rx 3 hours 180 optiflux 475/800 2 K. EDW 66.5. Volume status is acceptable. Electrolytes controlled. HD will be coordinated tomorrow. Check renal profile and H/H in AM prior to dialysis. Medications are currently appropriately dosed for kidney function. (2) Profound anemia: s/p 2 units PRBC transfusion support last night. s/p EGD with APC. MATA therapy will be coordinated with HD. (3) Secondary hyperparathyroidism of renal origin: Maintained on Sensipar at HD which has been held during the admission. Renal diet. Continue calcium acetate QAC. (4) Ascites: Therapeutic paracentesis PRN. (5) Severe aortic stenosis: (6) Chronic anemia: (7) Benign essential hypertension: (8) Melena: s/p EGD notable for gastritis with evidence of GAVE. Monitor H/H. 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 CKD attributed in the past to chronically atrophic left kidney, documented history of reflux nephropathy, frequent UTI, history of re- eclampsia, and hypertension. She is maintained on IHD at [facility] under my care. Anayeli has been on dialysis for 4 years. Anayeli dialyzes via a LUE AVF (s/p angioplasty and stent on March 2023) on a MWF schedule. She completed the majority of her treatment yesterday. 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 Dialysis tends to make her feel tired and weak. She often signs off of treatment early and unfortunately has been missing treatments regularly. She has attended 4 of 5 scheduled treatments this month and completed 3 of the 5 scheduled treatments completely. Her Rx is 3 hours on a 180 optiflux 475/800 with 2 K bath. EDW 69.2 kg. Anayeli has not left HD below 67 kg in the past couple of weeks. Medical history is also notable for significant valvular heart disease. Anayeli has known severe aortic stenosis and severe tricuspid regurgitation. Recently diagnosed with hypothyroidism and started on treatment. She has a recent history of new onset recurrent transudative ascites. She has required repeat paracentesis since November 2022. She has had notable persistent anemia requiring multiple blood transfusions. Anayeli was previously listed for kidney transplant but deactivated on the waiting list due to her valvular heart disease. Anayeli was referred to [facility] following HD yesterday for evaluation of progressive anemia, weakness, melena. She received 2 units of PRBC transfusion support last week for anemia. Hemoglobin was 9.0 on Saturday and hemoglobin yesterday had dropped to <7. On questioning, Anayeli reported black tarry stools x 2 weeks. She was noted to be hypotensive and weak. Anayeli received PRBC transfusion support overnight x 2 units. EGD was completed today demonstrating gastritis with evidence of GAVE. Biopsies were taken. APC treatment provided to friable gastric areas. I saw and evaluated Anayeli in her hospital room this morning. Allergies Allergy/AdvReac Type Severity Reaction Status Date / Time Penicillins Allergy Unknown Verified 03/12/19 06:15 Home Medications Medication Instructions Recorded Confirmed Type allopurinol 100 mg tablet 100 mg PO DAILY 03/12/19 05/15/23 History calcium acetate(phosphat bind) 667 667 mg PO TID #90 caps 03/12/19 05/15/23 History mg capsule epoetin cate-epbx 10,000 unit/mL 10,000 units subcut MONTHLY #1 mL 03/12/19 05/15/23 History injection solution (Retacrit) levothyroxine 50 mcg tablet 112 mcg PO DAILY 03/12/19 05/15/23 History sertraline 100 mg tablet 100 mg PO DAILY 03/12/19 05/15/23 History sodium bicarbonate 650 mg tablet 650 mg PO BID #60 tabs 03/12/19 05/15/23 History carvedilol 6.25 mg tablet 6.25 mg PO BID 05/15/23 05/15/23 History clotrimazole-betamethasone 1 See Rx Instructions .Route .COMPLEX 05/15/23 05/15/23 History %-0.05 % topical cream montelukast 10 mg tablet 10 mg PO DAILY 05/15/23 05/15/23 History pantoprazole 20 mg tablet,delayed 20 mg PO DAILY 05/15/23 05/15/23 History release Patient History Medical History Asymptomatic proteinuria Benign essential hypertension Chronic anemia Chronic kidney disease, stage V Encounter for pre-operative examination Hyperphosphatemia Hypothyroidism Metabolic acidosis Secondary hyperparathyroidism of renal origin Vitamin D deficiency Surgical History A-V fistula Hx of section Family History Father Hypertension Mother Dyslipidemia Parkinsonism Grandfather (Maternal) Parkinsonism Social History Smoking Status: Never smoker Hx Alcohol Use: No Hx Substance Use: No Preferred Language: Greenlandic Communication Ability: Effective Card Decorator Required: No Beliefs That Will Affect Care: None Current Living Situation: Spouse and Family Other Information That Helps Us Care for You: No Feels Safe at Home: Yes Safety Concerns: Feels Safe At This Time Assistive Devices: None Review of Systems Review of Systems: All systems reviewed & are unremarkable except as noted in HPI & below Constitutional: + fatigue Gastrointestinal: + change in stools and + melena; no abdominal pain Physical Exam Constitutional: well developed and + frail appearing; no acute distress Eyes: no scleral abnormality and no corneal abnormality ENMT: Mouth: no oral mucosal abnormality and oral mucous membranes not dry Neck: normal visual inspection and trachea midline Respiratory: normal respiratory effort Auscultation: lungs clear to auscultation bilaterally Cardiovascular: Rate/Rhythm: regular rate Heart Sounds: normal S1 and normal S2 Extremities: no edema Musculoskeletal: Extremities: no cyanosis and no clubbing Skin: normal turgor; no lesions Neurologic: Motor/Sensory: no tremor and no asterixis Psychiatric: Orientation: alert and oriented x 3 Results & Data Vital Signs (Past 12 Hours) Vital Signs Temp Pulse Pulse Pulse Resp BP Pulse Ox 05/16/23 14:50 36.2 C L 80 18 96/56 L 98 05/16/23 14:40 79 17 96/55 L 94 05/16/23 14:30 80 19 98/51 L 96 05/16/23 14:22 36.0 C L 80 19 91/45 L 98 05/16/23 13:30 36.6 C 83 16 112/64 94 05/16/23 12:56 81 16 106/59 L 94 05/16/23 12:41 81 16 98/55 L 96 05/16/23 12:27 79 14 86/48 L 96 05/16/23 11:15 37 C 86 18 103/55 L 96 05/16/23 06:00 81 05/16/23 08:09 36.6 C 81 19 106/68 98 O2 Del Method O2 Flow Rate 05/16/23 14:50 Nasal Cannula 2 05/16/23 14:40 Nasal Cannula 2 05/16/23 14:30 Oxymask 5 05/16/23 14:22 Oxymask 5 05/16/23 13:30 Room Air 05/16/23 12:56 Room Air 05/16/23 12:41 Oxymask 2 05/16/23 12:27 Oxymask 10 05/16/23 11:15 Room Air 05/16/23 06:00 05/16/23 08:09 Room Air Laboratory Results Laboratory Results - last 24 hr 05/15/23 05/15/23 05/16/23 15:00 16:14 06:11 WBC 6.18 RBC 2.92 L Hgb 8.8 L Hct 26.9 L MCV 92.1 D MCH 30.1 MCHC 32.7 RDW Std Deviation 64.4 H RDW Coeff of David 19.8 H Plt Count 206 MPV 11.0 PT INR Sodium Potassium Chloride Carbon Dioxide Anion Gap BUN Creatinine Est Cr Clr Drug Dosing Est GFR ( Amer) Est GFR (Non-Af Amer) BUN/Creatinine Ratio Glucose Calcium Phosphorus Magnesium Total Bilirubin AST ALT Alkaline Phosphatase Total Protein Albumin Globulin Albumin/Globulin Ratio SARS-CoV-2 (PCR) Influenza Type A (PCR) Influenza Type B (PCR) RSV (RT-PCR) Blood Type O Positive Blood Type Recheck O Positive Antibody Screen NEGATIVE Crossmatch See Detail 05/16/23 05/16/23 05/16/23 06:11 06:11 Unknown WBC RBC Hgb Hct MCV MCH MCHC RDW Std Deviation RDW Coeff of David Plt Count MPV PT 13.2 H INR 1.2 H Sodium 139 Potassium 4.2 Chloride 96 L Carbon Dioxide 28 Anion Gap 15 H BUN 65 H Creatinine 4.16 H D Est Cr Clr Drug Dosing 13.3 Est GFR ( Amer) 13.2 Est GFR (Non-Af Amer) 11.4 BUN/Creatinine Ratio 15.6 Glucose 82 Calcium 8.8 Phosphorus 5.2 H Magnesium 2.1 Total Bilirubin 1.3 H AST 16 ALT 5 L Alkaline Phosphatase 178 H Total Protein 5.7 L Albumin 3.5 Globulin 2.2 L Albumin/Globulin Ratio 1.6 SARS-CoV-2 (PCR) NEGATIVE Influenza Type A (PCR) Negative Influenza Type B (PCR) Negative RSV (RT-PCR) Negative Blood Type Blood Type Recheck Antibody Screen Crossmatch Diagnostic Findings XR chest 1V portable FINDINGS: Cardiac silhouette is enlarged. Mild interstitial coarsening may be chronic. Mild linear bibasilar densities. No pneumothorax, pleural effusion or lobar airspace consolidation. Prominent confluent radiodense foci/calcified structures obscure the bilateral shoulders. IMPRESSION: Cardiomegaly with mild bibasilar atelectasis. US duplex portal hepatic veins FINDINGS: Upper abdominal ascites is noted. Patent hepatic and portal veins with hepatopedal flow. Hepatic artery is patent with peak systolic velocities measuring up to 83.4 cm/s. IMPRESSION: 1. Patent hepatic vasculature. 2. Upper abdominal ascites. PG Care Time/CCT Total # of Minutes Spent Total Time Spent with Patient: Total time spent is greater than 50% in coordination of care (as documented) at patient's floor/unit and/or counseling patient: Coding Level of Care Code 40686 IN/OBS CONSULT LVL 4,60M Diagnoses ESRD (end stage renal disease) N18.6 Profound anemia D64.9 Secondary hyperparathyroidism of renal origin N25.81 Ascites R18.8 Severe aortic stenosis I35.0 Chronic anemia D64.9 Benign essential hypertension I10 Melena K92.1
[2023-05-16] MEDS ORDERED: ACETAMINOPHEN 325 MG TAB PO ONE (18:51)
[2023-05-16] MEDS: SUCRALFATE 1 GM TAB PO SCH (21:51)
[2023-05-17 06:34] LABS: Basophils # (auto) 0.07 K/uL (0.00-0.20); Basophils % (auto) 0.6 %; Hematocrit (blood only) 28.9 % (37.0-47.0); Hemoglobin 9.2 g/dl (12.0-16.0); Immature Granulocytes # (auto) 0.08 K/uL (0.01-0.20); Immature Granulocytes % (auto) 0.7 %; Lymphocytes # (auto) 0.52 K/uL (1.20-3.40); Lymphocytes % (auto) 4.5 %; Mean Corpuscular Hemoglobin 29.9 pg (25.0-34.0); Mean Corpuscular Hgb Conc 31.8 g/dL (32.0-36.0); Mean Corpuscular Volume 93.8 fL (80.0-100.0); Mean Platelet Volume 11.2 fL (9.4-12.4); Monocytes # (auto) 0.66 K/uL (0.11-0.59); Monocytes % (auto) 5.7 %; Neutrophils # (auto) 10.24 K/uL (1.40-6.50); Neutrophils % (auto) 88.5 %; Platelet Count 238 K/uL (130-400); RDW Coefficient of Variation 19.1 % (11.5-14.5); RDW Standard Deviation 64.2 fL (36.4-46.3); Red Blood Count 3.08 M/uL (4.20-5.40); White Blood Count 11.57 K/ul (4.8-10.8)
[2023-05-17 06:58] LABS: BUN Creatinine Ratio 14.6 (10-20); Creatinine Clr Calc Pharmacy 11.5 ml/min; Est GFR (African American) 10.4 ml/min; Est GFR (Non-African American) 8.9 ml/min; Potassium 4.4 mmol/L (3.5-5.1)
[2023-05-17] MEDS ORDERED: IRON SUCROSE 100 MG in SYRINGE 0 ML IV ONE (07:00)
[2023-05-17] MEDS ORDERED: EPOETIN ALFA 20,000 UNITS/ML VIAL IV ONE (07:00)
[2023-05-17] MEDS: LEVOTHYROXINE SODIUM 112 MCG TABLET PO SCH (08:15)
[2023-05-17] MEDS: SERTRALINE HCL 100 MG TABLET PO SCH (08:15)
[2023-05-17] MEDS: SODIUM BICARBONATE 650 MG TAB PO SCH ×2 (08:15→20:23)
[2023-05-17] MEDS: SUCRALFATE 1 GM TAB PO SCH ×2 (08:15→20:23)
[2023-05-17] MEDS: allopurinoL 100 MG TAB PO SCH (08:16)
[2023-05-17] MEDS: PANTOprazole 40 MG in SYRINGE 0 ML IV SCH ×2 (08:16→20:23)
[2023-05-17] MEDS: CALCIUM ACETATE 667 MG CAP/TAB PO SCH ×3 (08:16→18:34)
[2023-05-17] MEDS: MONTELUKAST SODIUM 10 MG TABLET PO SCH (08:16)
--- NOTE | 2023-05-17 11:45 | Nephrology Progress Note ---
Date of Service May 17, 2023 Assessment & Plan (1) ESRD (end stage renal disease): Plan: HD MWF. Receives HD at [facility] as an outpatient. Rx 3 hours 180 optiflux 475/800 2 K. EDW 66.5. Orders for HD today entered into EHR and reviewed with assembler convertible top. Tolerating treatment well. AVF functioning well. Clearance at goal. Chronic intradialytic hypotension noted. Medications are currently appropriately dosed for kidney function. (2) Profound anemia: Plan: s/p 2 units PRBC transfusion support on admission. EGD with APC performed yesterday. Epogen 73645 units and venofer 100 mg with HD today. (3) Secondary hyperparathyroidism of renal origin: Plan: Maintained on Sensipar at HD which has been held during the admission. Renal diet. Continue calcium acetate QAC. (4) Ascites: Plan: Therapeutic paracentesis PRN. (5) Benign essential hypertension: (6) Melena: Plan: s/p EGD notable for gastritis with evidence of GAVE. Monitor H/H. Close outpatient follow up. (7) Severe aortic stenosis: Plan: Appreciated cardiology consultation. Outpatient follow up scheduled. (8) Severe tricuspid regurgitation: Admission and Anticipated Discharge Date Admission Date: May 15, 2023 Subjective No acute events overnight. Anayeli was seen and evaluated during hemodialysis this morning. She is tolerating treatment well. She states that she feels well. Notable improvement. She denies melena or hematochezia. No abdominal pain. Breathing comfortably. Review of Systems Review of Systems: All systems reviewed & are unremarkable except as noted in HPI & below Physical Exam Constitutional: well developed and + frail appearing; no acute distress Eyes: no scleral abnormality and no corneal abnormality ENMT: Mouth: no oral mucosal abnormality and oral mucous membranes not dry Neck: normal visual inspection and trachea midline Respiratory: normal respiratory effort Auscultation: lungs clear to auscultation bilaterally Cardiovascular: Rate/Rhythm: regular rate Heart Sounds: normal S1 and normal S2 Extremities: no edema Gastrointestinal (Abdomen): Inspection/Auscultation: + abdomen distended Percussion/Palpation: + hernia; abdomen nontender and no guarding Musculoskeletal: Extremities: no cyanosis and no clubbing Skin: normal turgor; no lesions Neurologic: Motor/Sensory: no tremor and no asterixis Psychiatric: Orientation: alert and oriented x 3 Results & Data Vital Signs (Past 12 Hours) Vital Signs Temp Pulse Pulse Pulse Resp BP BP 05/17/23 11:30 81 95/53 L 05/17/23 11:00 80 94/53 L 05/17/23 10:30 80 97/54 L 05/17/23 10:00 82 91/59 L 05/17/23 09:39 36.4 C L 72 05/17/23 07:53 36.4 C L 83 18 104/68 05/17/23 05:59 80 05/17/23 02:47 36.6 C 83 20 101/65 Pulse Ox O2 Del Method 05/17/23 11:30 05/17/23 11:00 05/17/23 10:30 05/17/23 10:00 05/17/23 09:39 05/17/23 07:53 94 Room Air 05/17/23 05:59 05/17/23 02:47 92 Room Air Laboratory Results Laboratory Results - last 24 hr 05/17/23 05/17/23 05:57 05:57 WBC 11.57 H RBC 3.08 L Hgb 9.2 L Hct 28.9 L MCV 93.8 MCH 29.9 MCHC 31.8 L RDW Std Deviation 64.2 H RDW Coeff of David 19.1 H Plt Count 238 MPV 11.2 Immature Gran % (Auto) 0.7 Neut % (Auto) 88.5 Lymph % (Auto) 4.5 Terry % (Auto) 5.7 Eos % (Auto) 0.0 Baso % (Auto) 0.6 Neut # (Auto) 10.24 H Lymph # (Auto) 0.52 L Terry # (Auto) 0.66 H Eos # (Auto) 0.00 Baso # (Auto) 0.07 Immature Gran # (Auto) 0.08 Sodium 136 Potassium 4.4 Chloride 94 L Carbon Dioxide 26 Anion Gap 16 H BUN 74 H Creatinine 5.08 H* D Est Cr Clr Drug Dosing 11.5 Est GFR ( Amer) 10.4 Est GFR (Non-Af Amer) 8.9 BUN/Creatinine Ratio 14.6 Glucose 91 Calcium 9.0 PG Care Time/CCT Total # of Minutes Spent Total Time Spent with Patient: Total time spent is greater than 50% in coordination of care (as documented) at patient's floor/unit and/or counseling patient: Coding Level of Care Code 67682 SUB INP/OBS CARE 50MIN Diagnoses ESRD (end stage renal disease) N18.6 Profound anemia D64.9 Secondary hyperparathyroidism of renal origin N25.81 Ascites R18.8 Benign essential hypertension I10 Melena K92.1 Severe aortic stenosis I35.0 Severe tricuspid regurgitation I07.1
--- NOTE | 2023-05-17 12:04 | Cardiology Progress Note ---
Date of Service May 17, 2023 Assessment & Plan (1) Profound anemia: (2) ESRD (end stage renal disease): (3) Severe aortic stenosis: (4) Pulmonary hypertension: (5) Ascites: Plan Very complex patient, 53-year-old with end-stage renal disease chronic anemia with recent symptomatic profound anemia on 2 occasions. Is being evaluated for severe to critical aortic stenosis. Other issues include recurrent ascites, pulmonary hypertension. Currently stable from a cardiac standpoint though with marginal reserve. Echocardiogram with severe arctic stenosis and preserved LV systolic function, severe tricuspid insufficiency with evidence of at least moderate pulmonary hypertension Patient's chronic blood loss issues are being addressed via GI though may ultimately be managed with intermittent transfusions No plans for acute cardiac intervention. Has follow-up appoint with outpatient cardiology on 05/21/2023 We will follow clinical course in hospital Patient elevated risk for any cardiac intervention or procedure 05/17/2023 Patient clinically improved following transfusion. Continue volume status management via dialysis Outpatient follow-up with cardiology Will sign off Admission and Anticipated Discharge Date Admission Date: May 15, 2023 Subjective Patient seen and examined prior to dialysis this morning. Overall feels substantially improved following transfusion yesterday. No chest pains, shortness of breath better cognition Review of Systems Review of Systems: All systems reviewed & are unremarkable except as noted in Subjective Physical Exam Constitutional: + ill appearing; no acute distress Neck: trachea midline, no thyromegaly Respiratory: Auscultation: + diminished lung sounds Cardiovascular: Rate/Rhythm: regular rate Heart Sounds: + murmur (Grade 3/6 systolic murmur) Vessels: no JVD Extremities: no edema Gastrointestinal (Abdomen): Percussion/Palpation: abdomen soft Results & Data Vital Signs (Past 12 Hours) Vital Signs Temp Pulse Pulse Pulse Resp BP BP 05/17/23 11:30 81 95/53 L 05/17/23 11:00 80 94/53 L 05/17/23 10:30 80 97/54 L 05/17/23 10:00 82 91/59 L 05/17/23 09:39 36.4 C L 72 05/17/23 07:53 36.4 C L 83 18 104/68 05/17/23 05:59 80 05/17/23 02:47 36.6 C 83 20 101/65 Pulse Ox O2 Del Method 05/17/23 11:30 05/17/23 11:00 05/17/23 10:30 05/17/23 10:00 05/17/23 09:39 05/17/23 07:53 94 Room Air 05/17/23 05:59 05/17/23 02:47 92 Room Air
--- NOTE | 2023-05-17 14:25 | Hospitalist Progress Note ---
Date of Service May 17, 2023 Assessment & Plan (1) GI bleed: (2) Chronic anemia: Plan: This is a 53-year-old female with PMHx of's end-stage renal disease on dialysis x 4 years, (due to solitary kidney, frequent UTIs, pre-eclampsia, gout, HTN and reflux nephropathy), with regular HD schedule MWF with brachiocephalic AVF which required AV fistulogram stent and peripheral angioplasty 04/02/23, severe , severe TR, mild MR, severe pulmonary hypertension, anemia of chronic disease and iron deficiency, requiring multiple transfusions in the past, HTN, ascites (first began in November 2022 requiring paracentesis), secondary hyperparathyroidism, Vit D deficiency, hypothyroidism and depression who presents to the hospital with 1 day of lightheadedness and dizziness. [place] [facility] [place] right heart cath. She was found to have anemia and was transfused. Endoscopy was not performed as patient's hemoglobin remained stable. She was discharged on Protonix 20 mg once a day - BP hypotensive upon arival to ER, 89/49, initially given 250 ml, type and cross completed, -Hemoglobin found to be 6.1 on admission; transfused 2 units of blood. Repeat hemoglobin is stable - Pt with melanotic stools on and off with diarrhea over the past 2 months, patient has been receiving IV iron with dialysis transfusions Endoscopy done on 05/16-found to have diffuse pallor and friability of body of the stomach. Also found to have blood clot in the antrum with freshly oozing. 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 Oozing ablated with APC Continue on full liquid diet today and tomorrow Continue on PPI IV for 2 more days Monitor for any signs of bleeding (3) ESRD (end stage renal disease): Plan: -Nephrology consulted, follows with Dr. Hussein as an outpatient -Normal HD schedule MWF, received 2.5 hours session 05/15/23, -Avoid nephrotoxic agents, renally reduce medications -Received hemodialysis on 05/17 (4) Benign essential hypertension: (5) Severe aortic stenosis: (6) Pulmonary hypertension: Plan: -Follows with Dr. Varma with cardiology as outpatient -Recently had multiple medications discontinued or reduced including (DC meds amlodipine, Lasix) -Hold Coreg which is 6.25 mg BID for now with BP Cardiology consulted. Echocardiogram pending. (7) Hypothyroidism: Plan: - Cont levothyroxine 112 mcg daily (8) Vitamin D deficiency: Plan: - Chronic, stable DVT ppx: teds, scds CODE: FULL Access: 1 PIV, LUE AVF Dispo: PT OT; patient independent. Plan to discharge home after patient is medically stable. Time spent evaluating patient, direct bedside care, chart review, placing orders, interpretation of diagnostic studies, discussion with consultants, patient, and family members, as well as other required patient management activities is 60 minutes Please note the above document was generated using voice recognition software. It may contain grammatical, syntax or spelling errors. Any formal questions or concerns about the content, text or information contained within the body of this dictation should be directly addressed to the provider for clarification Admission and Anticipated Discharge Date Admission Date: May 15, 2023 Subjective Patient was seen in dialysis suit She is lying in the bed comfortably; not in distress. She reports that she is feeling better. No complaints of dizziness or shortness of breath. No overnight events Review of Systems Review of Systems: All systems reviewed & are unremarkable except as noted in Subjective Physical Exam Physical Exam: General: awake, alert, no apparent distress, comfortable. Head: Normocephalic, atraumatic ENT: PERRL, EOMI, no pharyngeal exudate, mucous membranes dry, no carotid bruits Chest: Clear to auscultation, on room air, no adventitious breath sounds Cardiac: Regular rate and rhythm, +loud systolic ejection murmur Grade III/, no JVD, normal peripheral pulses, good capillary refill Abdominal: NABS x 4 quadrants, soft, distended. Extremities: LUE AVF with thrill and bruit, Normal inspection, no peripheral edema or erythema, calfs nontender to palpation Psych: Normal mood and affect Neuro: AAO x 3, strength intact bilaterally and rated 5/5, no motor deficits, speech is clear, no peripheral sensory deficits Results & Data Results & Data Vital Signs (Past 12 Hours) Vital Signs Temp Pulse Pulse Pulse Resp BP BP 05/17/23 13:05 36.4 C L 75 93/60 L 05/17/23 12:00 81 97/52 L 05/17/23 11:30 81 95/53 L 05/17/23 11:00 80 94/53 L 05/17/23 10:30 80 97/54 L 05/17/23 10:00 82 91/59 L 05/17/23 09:39 36.4 C L 72 05/17/23 07:53 36.4 C L 83 18 104/68 05/17/23 05:59 80 05/17/23 02:47 36.6 C 83 20 101/65 Pulse Ox O2 Del Method 05/17/23 13:05 05/17/23 12:00 05/17/23 11:30 05/17/23 11:00 05/17/23 10:30 05/17/23 10:00 05/17/23 09:39 05/17/23 07:53 94 Room Air 05/17/23 05:59 05/17/23 02:47 92 Room Air Laboratory Results Laboratory Results WBC 11.57 K/ul (4.8-10.8) H 05/17/23 05:57 RBC 3.08 M/uL (4.20-5.40) L 05/17/23 05:57 Hgb 9.2 g/dl (12.0-16.0) L 05/17/23 05:57 Hct 28.9 % (37.0-47.0) L 05/17/23 05:57 MCV 93.8 fL (80.0-100.0) 05/17/23 05:57 MCH 29.9 pg (25.0-34.0) 05/17/23 05:57 MCHC 31.8 g/dL (32.0-36.0) L 05/17/23 05:57 RDW Std Deviation 64.2 fL (36.4-46.3) H 05/17/23 05:57 RDW Coeff of David 19.1 % (11.5-14.5) H 05/17/23 05:57 Plt Count 238 K/uL (130-400) 05/17/23 05:57 MPV 11.2 fL (9.4-12.4) 05/17/23 05:57 Immature Gran % (Auto) 0.7 % 05/17/23 05:57 Neut % (Auto) 88.5 % 05/17/23 05:57 Lymph % (Auto) 4.5 % 05/17/23 05:57 Garvin % (Auto) 5.7 % 05/17/23 05:57 Eos % (Auto) 0.0 % 05/17/23 05:57 Baso % (Auto) 0.6 % 05/17/23 05:57 Neut # (Auto) 10.24 K/uL (1.40-6.50) H 05/17/23 05:57 Lymph # (Auto) 0.52 K/uL (1.20-3.40) L 05/17/23 05:57 Garvin # (Auto) 0.66 K/uL (0.11-0.59) H 05/17/23 05:57 Eos # (Auto) 0.00 K/uL (0.00-0.50) 05/17/23 05:57 Baso # (Auto) 0.07 K/uL (0.00-0.20) 05/17/23 05:57 Immature Gran # (Auto) 0.08 K/uL (0.01-0.20) 05/17/23 05:57 Hypochromasia Present 05/15/23 15:00 PT 13.2 Seconds (9.0-12.0) H 05/16/23 06:11 INR 1.2 (0.9-1.1) H 05/16/23 06:11 APTT 29.9 Seconds (21.0-31.0) 05/15/23 15:00 PTT Ratio 1.1 05/15/23 15:00 Sodium 136 mmol/L (136-145) 05/17/23 05:57 Potassium 4.4 mmol/L (3.5-5.1) 05/17/23 05:57 Chloride 94 mmol/L (98-107) L 05/17/23 05:57 Carbon Dioxide 26 mmol/L (21-32) 05/17/23 05:57 Anion Gap 16 (3-11) H 05/17/23 05:57 BUN 74 mg/dl (6-23) H 05/17/23 05:57 Creatinine 5.08 mg/dl (0.6-1.2) H* D 05/17/23 05:57 Est Cr Clr Drug Dosing 11.5 ml/min 05/17/23 05:57 Est GFR ( Amer) 10.4 ml/min 05/17/23 05:57 Est GFR (Non-Af Amer) 8.9 ml/min 05/17/23 05:57 BUN/Creatinine Ratio 14.6 (10-20) 05/17/23 05:57 Glucose 91 mg/dl (70-99(Fasting)) 05/17/23 05:57 Calcium 9.0 mg/dl (8.6-10.3) 05/17/23 05:57 Phosphorus 5.2 mg/dl (2.5-4.9) H 05/16/23 06:11 Magnesium 2.1 mg/dl (1.7-2.4) 05/16/23 06:11 Total Bilirubin 1.3 mg/dl (0.2-1.0) H 05/16/23 06:11 AST 16 U/L (13-39) 05/16/23 06:11 ALT 5 U/L (7-52) L 05/16/23 06:11 Alkaline Phosphatase 178 U/L (34-104) H 05/16/23 06:11 Troponin I High Sens 8.1 pg/ml (0-14) 05/15/23 15:00 Total Protein 5.7 gm/dl (6.0-8.3) L 05/16/23 06:11 Albumin 3.5 gm/dl (3.4-5.0) 05/16/23 06:11 Globulin 2.2 gm/dl (2.5-4.0) L 05/16/23 06:11 Albumin/Globulin Ratio 1.6 (0.9-2) 05/16/23 06:11 POC Stool Occult Blood Positive (Negative) A 05/15/23 15:12 SARS-CoV-2 (PCR) NEGATIVE (Negative) 05/16/23 Unknown Influenza Type A (PCR) Negative (Neg) 05/16/23 Unknown Influenza Type B (PCR) Negative (Neg) 05/16/23 Unknown RSV (RT-PCR) Negative (Neg) 05/16/23 Unknown Blood Type O Positive 05/15/23 15:00 Blood Type Recheck O Positive 05/15/23 16:14 Antibody Screen NEGATIVE 05/15/23 15:00 Crossmatch See Detail 05/15/23 15:00 Impressions Chest X-Ray 05/15/23 16:19 XR chest 1V portable HISTORY: 53 years-old Female lightheadedness COMPARISON: None TECHNIQUE: AP view of the chest FINDINGS: Cardiac silhouette is enlarged. Mild interstitial coarsening may be chronic. Mild linear bibasilar densities. No pneumothorax, pleural effusion or lobar airspace consolidation. Prominent confluent radiodense foci/calcified structures obscure the bilateral shoulders. IMPRESSION: Cardiomegaly with mild bibasilar atelectasis. ACT 112: Negative or not required by law. The above report was generated using voice recognition software. It may contain grammatical, syntax or spelling errors. Electronically signed by: Golden Mcduffie M.D. 05/15/2023 4:57 PM Portal Vein US 05/16/23 00:00 US duplex portal hepatic veins HISTORY: 53 years-old Female Eval portal vasculature acute right upper quadrant abdominal pain COMPARISON: None TECHNIQUE: Multiple real-time sonographic images of the hepatic vasculature was obtained assessing grayscale appearance, color and spectral flow FINDINGS: Upper abdominal ascites is noted. Patent hepatic and portal veins with hepatopedal flow. Hepatic artery is patent with peak systolic velocities measuri ng up to 83.4 cm/s. IMPRESSION: 1. Patent hepatic vasculature. 2. Upper abdominal ascites. ACT 112: Negative or not required by law. The above report was generated using voice recognition software. It may contain grammatical, syntax or spelling errors. Electronically signed by: Golden Mcduffie M.D. 05/16/2023 9:02 AM
[2023-05-18 06:38] LABS: Basophils # (auto) 0.04 K/uL (0.00-0.20); Basophils % (auto) 0.6 %; Hematocrit (blood only) 28.9 % (37.0-47.0); Hemoglobin 9.1 g/dl (12.0-16.0); Immature Granulocytes # (auto) 0.03 K/uL (0.01-0.20); Immature Granulocytes % (auto) 0.4 %; Lymphocytes # (auto) 0.49 K/uL (1.20-3.40); Mean Corpuscular Hemoglobin 29.8 pg (25.0-34.0); Mean Corpuscular Hgb Conc 31.5 g/dL (32.0-36.0); Mean Corpuscular Volume 94.8 fL (80.0-100.0); Mean Platelet Volume 10.8 fL (9.4-12.4); Monocytes # (auto) 0.57 K/uL (0.11-0.59); Monocytes % (auto) 8.2 %; Neutrophils # (auto) 5.86 K/uL (1.40-6.50); Neutrophils % (auto) 83.8 %; Platelet Count 238 K/uL (130-400); RDW Standard Deviation 65.2 fL (36.4-46.3); Red Blood Count 3.05 M/uL (4.20-5.40); White Blood Count 6.99 K/ul (4.8-10.8)
[2023-05-18 08:21] LABS: BUN Creatinine Ratio 10.8 (10-20); Calcium 9.2 mg/dl (8.6-10.3); Creatinine Clr Calc Pharmacy 15.2 ml/min; Est GFR (African American) 15.2 ml/min; Est GFR (Non-African American) 13.1 ml/min; Potassium 3.8 mmol/L (3.5-5.1)
[2023-05-18] MEDS: SUCRALFATE 1 GM TAB PO SCH (08:27)
[2023-05-18] MEDS: SODIUM BICARBONATE 650 MG TAB PO SCH (08:27)
[2023-05-18] MEDS: PANTOprazole 40 MG in SYRINGE 0 ML IV SCH (08:27)
[2023-05-18] MEDS: LEVOTHYROXINE SODIUM 112 MCG TABLET PO SCH (08:28)
[2023-05-18] MEDS: allopurinoL 100 MG TAB PO SCH (08:28)
[2023-05-18] MEDS: SERTRALINE HCL 100 MG TABLET PO SCH (08:28)
[2023-05-18] MEDS: MONTELUKAST SODIUM 10 MG TABLET PO SCH (08:28)
[2023-05-18] MEDS: CALCIUM ACETATE 667 MG CAP/TAB PO SCH ×2 (08:55→12:18)
--- NOTE | 2023-05-18 09:28 | Nephrology Progress Note ---
Date of Service May 18, 2023 Assessment & Plan (1) ESRD (end stage renal disease): Plan: * Last HD 05/17/23. 2 L UF obtained. No complications. AVF with + bruit this am * Volume status and electrolyte balance are acceptable. 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 Whaley was evaluated in her hospital room this morning. She denied abdominal pain, melena or hematochezia. She reports no complications w/ HD yesterday. Review of Systems Constitutional: no fever Eyes: no problem reported Ear, Nose, Mouth, Throat: no problem reported Respiratory: no cough and no dyspnea Cardiovascular: no chest pain Gastrointestinal: no abdominal pain, no nausea, no vomiting, no diarrhea/loose stools, no blood in stools and no melena Physical Exam Constitutional: not in distress Eyes: PERRL, conjunctivae normal, anicteric sclerae ENMT: external ear and nose normal, oropharynx normal Neck: trachea midline, no thyromegaly Respiratory: normal respiratory effort, lungs clear to auscultation Cardiovascular: RRR, no murmur, no edema Gastrointestinal (Abdomen): normal bowel sounds, soft, nontender, no hepatosplenomegaly Skin: no rashes, warm and dry Results & Data Vital Signs (Past 12 Hours) Vital Signs Temp Pulse Pulse Pulse Resp BP Pulse Ox 05/18/23 08:30 36.8 C 84 18 100/64 92 05/18/23 06:01 87 05/18/23 03:26 36.9 C 83 16 98/64 L 94 05/17/23 23:00 83 05/17/23 22:39 36.9 C 81 20 95/62 L 94 O2 Del Method 05/18/23 08:30 Room Air 05/18/23 06:01 10/14/23 03:26 Room Air 05/17/23 23:00 05/17/23 22:39 Room Air Laboratory Results Laboratory Tests 05/18/23 05/18/23 05:51 05:51 WBC 6.99 Hgb 9.1 L Hct 28.9 L Plt Count 238 Sodium 139 Potassium 3.8 Chloride 98 Carbon Dioxide 28 BUN 40 H D Creatinine 3.70 H D Glucose 93 PG Care Time/CCT Total # of Minutes Spent Total Time Spent with Patient: Total time spent is greater than 50% in coordination of care (as documented) at patient's floor/unit and/or counseling patient: Coding Level of Care Code 28016 SUB INP/OBS CARE 3/50MIN Diagnoses ESRD (end stage renal disease) N18.6 Profound anemia D64.9 Severe aortic stenosis I35.0 Ascites R18.8
--- NOTE | 2023-05-18 14:44 | Discharge Summary ---
Date of Service May 18, 2023 Admission HPI Per Admitting Provider This is a 53-year-old female with PMHx of's end-stage renal disease on dialysis x 4 years, (due to solitary kidney, frequent UTIs, pre-eclampsia, gout, HTN and reflux nephropathy), with regular HD schedule MWF with brachiocephalic AVF which required AV fistulogram stent and peripheral angioplasty 04/02/23, severe , severe TR, mild MR, severe pulmonary hypertension, anemia of chronic disease and iron deficiency, requiring multiple transfusions in the past, HTN, ascites (first began in November 2022 requiring paracentesis), secondary hyperparathyroidism, Vit D deficiency, hypothyroidism and depression who present s to the hospital with 1 day of lightheadedness and dizziness. She was recently hospitalized in [place] [facility] in Apr 2023 Pt was at dialysis this morning and was noting symptoms at that time. She admits to having abdominal distension which is present, but she doesn't think this is worse than normal. Her bowels have looked dark, but thought alejandro this was due to her iron tablet. She has had uncontrolled bouts of diarrhea today, it has been intermittent. Pt had paracentesis in October done, which does not show liver morphology, she was attempted to be scheduled by Dr. Hussein for paracentesis on 05/23 at [facility] as per outpatient EPIC chart review. Pt follow with Dr. Varma with [facility] hospitality associate and was noted that BP had been 89/44 at the end of April, and at that time pt coreg was reduced to 6.25 mg BID. She was supposed to have a cardiac right-sided cardiac catheterization to evaluate aortic stenosis and pulmonary hypertension at [facility] but was found to have a hemoglobin of 6.6 at that time. Procedure was aborted and decision was made to admit to medicine and transfuse 1 unit PRBCs. During that hospital stay nephrology and GI were consulted due to GI bleed. At that time she was also complaining of melena x 2 months and thought it was from her iron pills, orthostasis , nausea and diarrhea. This is nearly identical to the symptoms she is complaining of today. Questionable circumstances regarding EGD and colonoscopy during that hospital stay and ultimately were not performed. Admission Exam Per Admitting Provider General: awake, alert, no apparent distress, + chronic darkening skin changes throughout, dry skin Head: Normocephalic, atraumatic ENT: PERRL, EOMI, no pharyngeal exudate, mucous membranes dry, no carotid bruits Chest: Clear to auscultation, on room air, no adventitious breath sounds Cardiac: Regular rate and rhythm, +loud systolic ejection murmur Grade III/, no JVD, normal peripheral pulses, good capillary refill Abdominal: NABS x 4 quadrants, soft, +distended, + fluid wave, minimally tender to palpation, no rebound or guarding Extremities: LUE AVF with thrill and bruit, Normal inspection, no peripheral edema or erythema, calfs nontender to palpation Psych: Normal mood and affect Neuro: AAO x 3, strength intact bilaterally and rated 5/5, no motor deficits, speech is clear, no peripheral sensory deficits Principal Diagnosis Upper GI bleed Discharge Exam General: awake, alert, no apparent distress, comfortable. Head: Normocephalic, atraumatic ENT: PERRL, EOMI, no pharyngeal exudate, mucous membranes dry, no carotid bruits Chest: Clear to auscultation, on room air, no adventitious breath sounds Cardiac: Regular rate and rhythm, +loud systolic ejection murmur Grade III/, no JVD, normal peripheral pulses, good capillary refill Abdominal: NABS x 4 quadrants, soft, distended. Extremities: LUE AVF with thrill and bruit, Normal inspection, no peripheral edema or erythema, calfs nontender to palpation Psych: Normal mood and affect Neuro: AAO x 3, strength intact bilaterally and rated 5/5, no motor deficits, speech is clear, no peripheral sensory deficits Discharge Data Allergies Allergy/AdvReac Type Severity Reaction Status Date / Time Penicillins Allergy Unknown Verified 03/12/19 06:15 Consultations 05/15/23 16:37 ED Decision to Admit Stat 05/15/23 17:00 Consult Gastroenterology Routine 05/15/23 17:15 Consult Cardiology Routine 05/15/23 19:57 Consult Cardiology Routine 05/16/23 08:08 Consult Nephrology Routine Procedures Performed Operation Date: 05/16/23 18:40 Actual Procedures p Esophagogastroduodenoscopy Hemostasis with Biopsy - Tirso Cordero MD Ordered Studies 05/16/23 duplex portal hepatic veins Routine Hospital Course (1) GI bleed: (2) Chronic anemia: (3) ESRD (end stage renal disease): (4) Benign essential hypertension: (5) Severe aortic stenosis: (6) Pulmonary hypertension: (7) Hypothyroidism: (8) Vitamin D deficiency: This is a 53-year-old female with PMHx of's end-stage renal disease on dialysis x 4 years, (due to solitary kidney, frequent UTIs, pre-eclampsia, gout, HTN and reflux nephropathy), with regular HD schedule MWF with brachiocephalic AVF which required AV fistulogram stent and peripheral angioplasty 04/02/23, severe , severe TR, mild MR, severe pulmonary hypertension, anemia of chronic disease and iron deficiency, requiring multiple transfusions in the past, HTN, ascites (first began in November 2022 requiring paracentesis), secondary hyperparathyroidism, Vit D deficiency, hypothyroidism and depression who presents to the hospital with 1 day of lightheadedness and dizziness. History of hospitalization in [facility] in middle of April for right heart cath. She was found to have anemia and was transfused. Endoscopy was not performed as patient's hemoglobin remained stable. She was discharged on Protonix 20 mg once a day In the ED, patient was hypotensive upon arival to ER, 89/49, initially given 250 ml, type and cross completed, Hemoglobin found to be 6.1 on admission; transfused 2 units of blood. Repeat hemoglobin is stable Patient was admitted to PCU. Started on IV Protonix Endoscopy done on 05/16/2023-found to have diffuse pallor and friability of body of the stomach. Also found to have blood clot in the antrum with freshly oozing. 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 Oozing ablated with APC Patient was placed on IV Protonix for 48 hours. At discharge, transitioned over to Protonix 40 mg once a day. Carafate 1 g twice daily as per GI recommendation Patient to follow-up with PCP after discharge Please note the above document was generated using voice recognition software. It may contain grammatical, syntax or spelling errors. Any formal questions or concerns about the content, text or information contained within the body of this dictation should be directly addressed to the provider for clarification Total Time Total Time Spent Total Time Spent (In Minutes): 45 Total Time Includes: Examination of the Patient, Discharge Planning, Medication Reconciliation, Communication With Other Providers and Other Discharge Plan Discharge Items Patient Disposition: Home - Self-Care Reason For Visit: ANEMIC, ESRD Discharge Diagnosis: Upper GI bleed Activity: Resume your previous activity Non-emergency contact: Primary Care Provider Call non-emergency contact if: you have any medication questions and your symptoms worsen Follow-up/Referrals: Pari Cheung MD [Outside Practitioners] - 05/23/23 3:00 pm Josias Waller DO [[employer] Operator] - (Date & Time 05/21/2023 2:30 PM Provider Josias Waller DO Department Cardiology [facility] ) Diet: Full liquid Addtl Attending Provider Instructions: You were admitted to the hospital due to dizziness. The likely cause for the dizziness is GI bleed. You underwent endoscopy by gastroenterology on May 16. You are found to have gastritis and bleeding. You are prescribed following medication as recommended by the solar installation crew supervisor: 1) Carafate 1 tablet twice daily for 2 weeks 2) Protonix 40 mg once a day in definitively. Please continue liquid diet for today. You can go back to regular diet for tomorrow. An appointment has been set up with primary care doctor. Pending Studies at Discharge: No Stand-Alone Forms: My [facility] [employer] ([employer]), Smoking Cessation Medications and DC Order Prescriptions: New sucralfate 1 gram Tablet 1 g PO BID 14 Days Qty: 28 0RF pantoprazole [Protonix] 40 mg tablet,delayed release (DR/EC) 40 mg PO DAILY 56 Days Qty: 56 0RF Continued Retacrit 10,000 unit/mL solution 10,000 units subcut MONTHLY Qty: 1 calcium acetate(phosphat bind) 667 mg capsule 667 mg PO TID Qty: 90 sodium bicarbonate 650 mg tablet 650 mg PO BID Qty: 60 levothyroxine 50 mcg tablet 112 mcg PO DAILY Patient Comments: per pt it's 112 mcg now intead of 50 mcg allopurinol 100 mg tablet 100 mg PO DAILY sertraline 100 mg tablet 100 mg PO DAILY carvedilol 6.25 mg tablet 6.25 mg PO BID Patient Comments: Pt isn't real sure of medication but she said she takes one that is 6.25 in the am and 6.25 in the pm, per fill history Coreg 6.25 is the one she's thinking of clotrimazole-betamethasone 1-0.05 % cream See Rx Instructions .ROUTE .COMPLEX Rx Instructions: as directed montelukast 10 mg tablet 10 mg PO DAILY Discontinued pantoprazole 20 mg tablet,delayed release (DR/EC) 20 mg PO DAILY Discharge Orders: Discharge Order (Routine); Ordered 05/18/23 Ordered By: Felix Bright Admission Data Admit Date/Time: 05/15/23 17:00 Attending Provider: Felix Bright Admit Provider: Oneyda Roman Primary Care Provider: Hardik Delaney Other Providers: Bjorn Villagomez ; Oneyda Roman ; Tirso Cordero ; John Hussein Other Interventions: Discharge Summary Assessment (RN) Last Done: 05/18/23 12:47
== END 2023-05-18 13:17 | disposition home or self-care (01) | DRG 377 ==
LOC: ED 13:51 → EDINP 17:00 → SUATTDRO 17:00 → EDINP 05-16 00:58 → 4W 05-16 02:29